=== PATIENT | female | born 1955 | race Caucasian/White ===

== ENCOUNTER 2017-10-16 16:45 | Observation (INO) | payer BC ==
[2017-10-16 17:43] LABS: Absolute Lymphocytes (CBC) 1.2 K/uL (0.7-4.9); Absolute Monocytes 0.8 K/uL (0.1-1.3); Absolute Neutrophil 8.7 K/uL (1.8-8.0); Basophils % 0.8 % (0-1.3); Eosinophils % 1.1 % (0-4.4); Hematocrit 40.3 % (36.0-45.0); Lymphocytes % 11.1 % (15.3-44.8); MCH 29.6 pg (27.0-35.0); MCV 86.4 fL (80-100); Monocytes % 7.5 % (3.3-12.3); RBC Red Blood Cell Count 4.67 M/uL (3.86-4.86)
[2017-10-16 17:45] LABS: Protime INR 0.98
[2017-10-16 17:48] LABS: Urine Blood 1+ (NEG); Urine Glucose NEGATIVE (NEG); Urine Protein NEGATIVE (NEG); Urine Specific Gravity 1.015 (1.005-1.030)
[2017-10-16 17:52] LABS: Urine Bacteria <20 /HPF (<20); Urine Culture Reflex Order REFLEXED; Urine RBC <5 /HPF (NONE SEEN)
[2017-10-16 17:56] LABS: ALT/SGPT 18 U/L (12-78); AST/SGOT 14 U/L (15-37); Albumin 3.9 g/dL (3.4-5.0); Alkaline Phosphatase 68 U/L (45-117); Amylase Level 23 U/L (25-115); BUN Blood Urea Nitrogen 10 mg/dL (7-18); Bicarbonate 27 mmol/L (21-32); Bilirubin Direct 0.2 mg/dL (0-0.2); Bilirubin Total 0.7 mg/dL (0.2-1.0); CKMB Creatine Kinase MB < 1.0 ng/mL (0.3-3.6); Creatine Phosphokinase 63 U/L (26-192); Glucose Level 111 mg/dL (74-106); Lipase 53 U/L (73-393); Magnesium 2.3 mg/dL (1.8-2.4); NT PRO-BNP 517 pg/mL (<125); Potassium 3.5 mmol/L (3.5-5.1); Protein, Total 7.3 g/dL (6.4-8.2); Sodium Level 140 mmol/L (136-145); Troponin (Emerg Dept Use Only) < 0.02 ng/mL (0.0-0.045)
[2017-10-16] MEDS ORDERED: FENTANYL CITR 100 MCG/2 ML ONE (17:57)
[2017-10-16] MEDS ORDERED: NA CHLORIDE 0.9% 1,000 ML ONE (17:57)
[2017-10-16] MEDS ORDERED: CIPROFLOXACIN 400mg IV 400 MG/200 ML BAG IV ONE (17:57)
[2017-10-16] MEDS ORDERED: ONDANSETRON 4 MG/2 ML VIAL ONE (17:57)
[2017-10-16] MEDS ORDERED: METRONIDAZOLE 500mg IVPB 500 MG/100 ML BAG IV ONE (17:57)
--- NOTE | 2017-10-16 20:25 | RAD REPORT ---
EXAM DESCRIPTION: Pablot Single View10/16/2017 5:40 pm CLINICAL HISTORY: ABDOMINAL DISTENTION COMPARISON: CHEST PA AND LAT 2 VIEW dated 03/07/2012; FINDINGS: The lungs appear clear of acute infiltrate. The heart is normal size IMPRESSION: No acute abnormalities displayed
--- NOTE | 2017-10-16 20:25 | RAD REPORT ---
EXAM DESCRIPTION: CT - Abdomen Pelvis W Contrast - 10/16/2017 8:06 pm CLINICAL HISTORY: ABD PAINAbdominal pain/right lower quadrant pain . COMPARISON: None. TECHNIQUE: Computed axial tomography of the abdomen and pelvis was obtained. 100 cc Isovue-300 is ad ministered intravenously. Oral contrast was given. All CT scans are performed using dose optimization technique as appropriate and may include automated exposure control or mA/KV adjustment according to patient size. FINDINGS: Fatty infiltration liver is present. Spleen, pancreas, and adrenals appear unremarkable. Renal cysts are present. The appendix is thickened with stranding and ill-defined fluid adjacent to it. Pneumoperitoneum is no t noted. There is no evidence of diverticulitis A diverticulum stems from the duodenum Gallstones are present without gallbladder wall thickening IMPRESSION: Appendicitis
--- NOTE | 2017-10-16 20:40 | EDPHYS ---
Physician Documentation [facility] Name: Wandy Tucker Age: 61 yrs Sex: Female : 1955 Arrival Date: 10/16/2017 Time: 16:49 Bed 28 Private MD: Shaka Anthony ED Physician Andrea Orr HPI: 10/16 17:40 This 61 yrs old Female presents to ER via Ambulatory with complaints of raysa Abdominal Pain. 17:40 The patient presents with abdominal pain in the upper abdomen, in the lower abdomen, raysa right lower quadrant. Onset: The symptoms/episode began/occurred 2 day(s) ago. The symptoms do not radiate. Associated signs and symptoms: none. The symptoms are described as crampy. Modifying factors: The symptoms are alleviated by nothing, the symptoms are aggravated by nothing. Severity of pain: At its worst the pain was moderate in the emergency department the pain is unchanged. The patient has not experienced similar symptoms in the past. Historical: - Allergies: 16:53 No Known Allergies; hj - Home Meds: 16:53 Paxil Oral [Active]; Wellbutrin Oral [Active]; hj - PMHx: 16:53 Depression; hj - PSHx: 16:53 ; Hysterectomy; hj - Immunization history:: Adult Immunizations up to date. - Social history:: Smoking status: Patient/guardian denies using tobacco, Patient/guardian denies using alcohol. - Ebola Screening: : Patient negative for fever greater than or equal to 101.5 degrees Fahrenheit, and additional compatible Ebola Virus Disease symptoms Patient denies exposure to infectious person Patient denies travel to an Ebola-affected area in the 21 days before illness onset. - Family history:: not pertinent. ROS: 17:43 Constitutional: Negative for fever, chills, and weight loss, Eyes: Negative for injury, raysa pain, redness, and discharge, ENT: Negative for injury, pain, and discharge, Neck: Negative for injury, pain, and swelling, Cardiovascular: Negative for chest pain, palpitations, and edema, Respiratory: Negative for shortness of breath, cough, wheezing, and pleuritic chest pain, Back: Negative for injury and pain, : Negative for injury, bleeding, discharge, and swelling, MS/Extremity: Negative for injury and deformity, Skin: Negative for injury, rash, and discoloration, Neuro: Negative for headache, weakness, numbness, tingling, and seizure, Psych: Negative for depression, anxiety, suicide ideation, homicidal ideation, and hallucinations, Allergy/Immunology: Negative for hives, rash, and allergies, Endocrine: Negative for neck swelling, polydipsia, polyuria, polyphagia, and marked weight changes, Hematologic/Lymphatic: Negative for swollen nodes, abnormal bleeding, and unusual bruising. 17:43 Abdomen/GI: Positive for abdominal pain, nausea, of the right lower quadrant. Exam: 17:40 Constitutional: This is a well developed, well nourished patient who is awake, alert, raysa and in no acute distress. Head/Face: Normocephalic, atraumatic. Eyes: Pupils equal round and reactive to light, extra-ocular motions intact. Lids and lashes normal. Conjunctiva and sclera are non-icteric and not injected. Cornea within normal limits. Periorbital areas with no swelling, redness, or edema. ENT: Nares patent. No nasal discharge, no septal abnormalities noted. Tympanic membranes are normal and external auditory canals are clear. Oropharynx with no redness, swelling, or masses, exudates, or evidence of obstruction, uvula midline. Mucous membranes moist. Neck: Trachea midline, no thyromegaly or masses palpated, and no cervical lymphadenopathy. Supple, full range of motion without nuchal rigidity, or vertebral point tenderness. No Meningismus. Chest/axilla: Normal chest wall appearance and motion. Nontender with no deformity. No lesions are appreciated. Cardiovascular: Regular rate and rhythm with a normal S1 and S2. No gallops, murmurs, or rubs. Normal PMI, no JVD. No pulse deficits. Respiratory: Lungs have equal breath sounds bilaterally, clear to auscultation and percussion. No rales, rhonchi or wheezes noted. No increased work of breathing, no retractions or nasal flaring. Back: No spinal tenderness. No costovertebral tenderness. Full range of motion. Female : Normal external genitalia. Skin: Warm, dry with normal turgor. Normal color with no rashes, no lesions, and no evidence of cellulitis. MS/ Extremity: Pulses equal, no cyanosis. Neurovascular intact. Full, normal range of motion. Neuro: Awake and alert, GCS 15, oriented to person, place, time, and situation. Cranial nerves II-XII grossly intact. Motor strength 5/5 in all extremities. Sensory grossly intact. Cerebellar exam normal. Normal gait. Psych: Awake, alert, with orientation to person, place and time. Behavior, mood, and affect are within normal limits. 17:40 Abdomen/GI: Inspection: abdomen appears normal, Bowel sounds: normal, Palpation: mild abdominal tenderness, in the right lower quadrant and left lower quadrant, Liver: no appreciated palpable abnormalities, Hernia: not appreciated. Vital Signs: 16:54 BP 141 / 80; Pulse 76; Resp 18; Temp 97.0(TE); Pulse Ox 100% on R/A; Weight 111.13 kg; hj Height 5 ft. 6 in. (167.64 cm); Pain 8/10; 18:45 BP 120 / 57 RA Sitting (auto/lg); Pulse 74; Resp 19; Pulse Ox 95% on R/A; Pain 2/10; jp3 19:39 BP 114 / 78; Pulse 76; Resp 16; Pulse Ox 98% on R/A; tl3 21:01 BP 136 / 79; Pulse 87; Resp 18; Pulse Ox 100% on R/A; tl3 22:19 BP 122 / 74; Pulse 81; Resp 18; Pulse Ox 100% on R/A; tl3 16:54 Body Mass Index 39.54 (111.13 kg, 167.64 cm) MDM: 17:01 Patient medically screened. [facility] 17:45 Data reviewed: vital signs, nurses notes, lab test result(s), EKG, radiologic studies, [facility] CT scan, plain films. 20:10 Data interpreted: Pulse oximetry: on room air is 98 %. Interpretation: normal. [facility] 20:38 Counseling: I had a detailed discussion with the patient and/or guardian regarding: the [facility] historical points, exam findings, and any diagnostic results supporting the discharge/admit diagnosis, lab results, radiology results, the need for further work-up and treatment in the hospital. Physician consultation: Jeremy Zavala MD was called at 20:38, was contacted at 20:38, regarding admission, to the medical/surgical unit. consult, patient's condition, and will see patient. 10/16 17:08 Order name: Amylase, Serum; Complete Time: 18:21 [facility] 10/16 17:08 Order name: Basic Metabolic Panel; Complete Time: 18:21 [facility] 10/16 17:08 Order name: CBC with Diff; Complete Time: 18:21 [facility] 10/16 17:08 Order name: Creatinine for Radiology; Complete Time: 18:21 [facility] 10/16 17:08 Order name: Hepatic Function; Complete Time: 18:21 [facility] 10/16 17:08 Order name: Lipase; Complete Time: 18:21 [facility] 10/16 17:08 Order name: Urine Microscopic Only; Complete Time: 18:21 [facility] 10/16 17:08 Order name: Ckmb; Complete Time: 18:21 [facility] 10/16 17:08 Order name: CPK; Complete Time: 18:21 [facility] 10/16 17:08 Order name: Magnesium; Complete Time: 18:21 [facility] 10/16 17:08 Order name: NT PRO-BNP; Complete Time: 18:21 [facility] 10/16 17:08 Order name: PT-INR; Complete Time: 18:21 [facility] 10/16 17:08 Order name: Ptt, Activated; Complete Time: 18:21 [facility] 10/16 17:08 Order name: Troponin (emerg Dept Use Only); Complete Time: 18:21 [facility] 10/16 17:15 Order name: Urine Dipstick--Ancillary (enter results); Complete Time: 18:21 em1 10/16 17:54 Order name: Urine Culture EDWI 10/16 17:08 Order name: XRAY Chest (1 view); Complete Time: 20:26 [facility] 10/16 17:39 Order name: CT Abd/Pelvis - W/Contrast; Complete Time: 20:26 [facility] 10/16 17:08 Order name: EKG; Complete Time: 17:09 [facility] 10/16 17:08 Order name: IV Saline Lock; Complete Time: 17:28 [facility] 10/16 17:08 Order name: Labs collected and sent; Complete Time: 17:28 [facility] 10/16 17:08 Order name: Urine Dipstick-Ancillary (obtain specimen); Complete Time: 17:13 [facility] 10/16 17:08 Order name: Cardiac monitoring; Complete Time: 17:27 [facility] 10/16 17:08 Order name: EKG - Nurse/Tech; Complete Time: 17:27 [facility] 10/16 17:08 Order name: O2 Per Protocol; Complete Time: 17:27 [facility] 10/16 17:08 Order name: O2 Sat Monitoring; Complete Time: 17:27 [facility] 10/16 20:28 Order name: NPO; Complete Time: 21:23 jr8 Administered Medications: 18:08 Drug: NS 0.9% 1000 ml Route: IV; Rate: 1 bolus; Site: left antecubital; aj1 21:00 Follow up: IV Status: Completed infusion; IV Intake: 1000ml tl3 18:08 Drug: Cipro 400 mg Volume: 200 ml; Route: IVPB; Infused Over: 60 mins; Site: left aj1 antecubital; 21:00 Follow up: IV Status: Completed infusion; IV Intake: 200ml tl3 18:09 Drug: Flagyl 500 mg Volume: 100 ml; Route: IVPB; Rate: 200 ml/hr; Infused Over: 30 aj1 mins; Site: left antecubital; 22:29 Follow up: IV Status: Completed infusion; Infusion continued upon admission; IV Intake: tl3 100ml 18:09 Drug: fentaNYL (PF) 25 mcg Route: IVP; Site: left antecubital; aj1 20:59 Follow up: Response: Pain is decreased tl3 18:09 Drug: Zofran 4 mg Route: IVP; Site: left antecubital; aj1 20:59 Follow up: Response: No adverse reaction tl3 Disposition: 10/17 08:23 Co-signature as Attending Physician, Andrea Orr MD I agree with the assessment and [facility] plan of care. Disposition: 10/16/17 20:39 Hospitalization ordered by Jeremy Zavala for Observation. Preliminary diagnosis is Acute appendicitis. - Bed requested for Telemetry/MedSurg (observation). - Status is Observation. tl3 - Condition is Stable. - Problem is new. - Symptoms have improved. UTI on Admission? No Signatures: Dispatcher [employer] Sarah Valentino RN RN aj1 Kristen Mckeon RN RN mw Anderson, Corey, MD MD cha Roszak, Josh, PA PA jr8 Andrew Davila RN RN hj Lowrey, Tammy, RN RN tl3 Corrections: (The following items were deleted from the chart) 10/16 20:42 20:39 Hospitalization Ordered by Jeremy Zavala MD for Observation. Preliminary diagnosis mw is Acute appendicitis. Bed requested for Telemetry/MedSurg (observation). Status is Observation. Condition is Stable. Problem is new. Symptoms have improved. UTI on Admission? No. jr8 22:30 20:42 10/16/2017 20:39 Hospitalization Ordered by Jeremy Zavala MD for Observation. tl3 Preliminary diagnosis is Acute appendicitis. Bed requested for Telemetry/MedSurg (observation). Status is Observation. Condition is Stable. Problem is new. Symptoms have improved. UTI on Admission? No. mw
--- NOTE | 2017-10-16 20:40 | ER ---
Nurse's Notes [facility] Name: Wandy Tucker Age: 61 yrs Sex: Female : 1955 Arrival Date: 10/16/2017 Time: 16:49 Bed 28 Private MD: Shaka Anthony Diagnosis: Acute appendicitis Presentation: 10/16 16:50 Presenting complaint: Patient states: i woke up this morning around 2 am with abd pain, hj R lower side; pain is 8/10; reports nausea, denies vomiting; reports diarrhea yesterday; reports chills; ibuprofen taken at 12 noon and Aleve at 2pm today;. Transition of care: patient was not received from another setting of care. Onset of symptoms was October 16, 2017. Risk Assessment: Do you want to hurt yourself or someone else? Patient reports no desire to harm self or others. Initial Sepsis Screen: Does the patient meet any 2 criteria? No. Patient's initial sepsis screen is negative. Does the patient have a suspected source of infection? No. Patient's initial sepsis screen is negative. Care prior to arrival: None. 16:50 Method Of Arrival: Ambulatory 16:50 Acuity: JAVED 3 hj Triage Assessment: 16:53 General: Appears in no apparent distress. uncomfortable, Behavior is calm, cooperative, hj appropriate for age. Pain: Complains of pain in abdomen Pain currently is 8 out of 10 on a pain scale. GI: Reports lower abdominal pain, diarrhea, nausea, vomiting. Historical: - Allergies: 16:53 No Known Allergies; hj - Home Meds: 16:53 Paxil Oral [Active]; Wellbutrin Oral [Active]; hj - PMHx: 16:53 Depression; hj - PSHx: 16:53 ; Hysterectomy; hj - Immunization history:: Adult Immunizations up to date. - Social history:: Smoking status: Patient/guardian denies using tobacco, Patient/guardian denies using alcohol. - Ebola Screening: : Patient negative for fever greater than or equal to 101.5 degrees Fahrenheit, and additional compatible Ebola Virus Disease symptoms Patient denies exposure to infectious person Patient denies travel to an Ebola-affected area in the 21 days before illness onset. - Family history:: not pertinent. Screenin:53 Abuse screen: Denies threats or abuse. Denies injuries from another. Nutritional hj screening: No deficits noted. Tuberculosis screening: No symptoms or risk factors identified. Fall Risk None identified. Assessment: 16:53 GI: Bowel sounds present X 4 quads. Abd is soft Abdomen is tender to palpation. hj 17:04 General: Appears in no apparent distress. uncomfortable, Behavior is calm, cooperative, aj1 appropriate for age. Pain: Complains of pain in right lower quadrant Pain radiates to back Pain currently is 8 out of 10 on a pain scale. Quality of pain is described as sharp, Pain began 1 day ago. Is continuous, Alleviated by medications, Aggravated by nothing. Neuro: Level of Consciousness is awake, alert, obeys commands. Cardiovascular: Patient's skin is warm and dry. Respiratory: Airway is patent Respiratory effort is even, unlabored, Respiratory pattern is regular, symmetrical. GI: Abdomen is non-distended, Bowel sounds present X 4 quads. Abd is soft X 4 quads Abdomen is tender to palpation X 4 quads. GI: Reports lower abdominal pain, diarrhea, nausea, Patient currently denies vomiting. : No signs and/or symptoms were reported regarding the genitourinary system. EENT: Derm: No signs and/or symptoms reported regarding the dermatologic system. Skin is pink, warm \T\ dry. normal. Musculoskeletal: Range of motion: intact in all extremities. 18:15 Reassessment: Patient appears in no apparent distress at this time. No changes from aj1 previously documented assessment. Patient and/or family updated on plan of care and expected duration. Pain level reassessed. Patient is alert, oriented x 3, equal unlabored respirations, skin warm/dry/pink. 19:39 Reassessment: Patient and/or family updated on plan of care and expected duration. Pain tl3 level reassessed. Patient is alert, oriented x 3, equal unlabored respirations, skin warm/dry/pink. no needs at this time. 21:01 Reassessment: Patient appears in no apparent distress at this time. No changes from tl3 previously documented assessment. Patient and/or family updated on plan of care and expected duration. Pain level reassessed. Patient is alert, oriented x 3, equal unlabored respirations, skin warm/dry/pink. Kevin discussed CT results with pt and the need for admission. 22:19 Reassessment: Patient appears in no apparent distress at this time. No changes from tl3 previously documented assessment. Patient and/or family updated on plan of care and expected duration. Pain level reassessed. Patient is alert, oriented x 3, equal unlabored respirations, skin warm/dry/pink. Vital Signs: 16:54 BP 141 / 80; Pulse 76; Resp 18; Temp 97.0(TE); Pulse Ox 100% on R/A; Weight 111.13 kg; hj Height 5 ft. 6 in. (167.64 cm); Pain 8/10; 18:45 BP 120 / 57 RA Sitting (auto/lg); Pulse 74; Resp 19; Pulse Ox 95% on R/A; Pain 2/10; jp3 19:39 BP 114 / 78; Pulse 76; Resp 16; Pulse Ox 98% on R/A; tl3 21:01 BP 136 / 79; Pulse 87; Resp 18; Pulse Ox 100% on R/A; tl3 22:19 BP 122 / 74; Pulse 81; Resp 18; Pulse Ox 100% on R/A; tl3 16:54 Body Mass Index 39.54 (111.13 kg, 167.64 cm) hj ED Course: 16:49 Patient arrived in ED. sb2 16:49 Shaka Anthony MD is Private Physician. sb2 16:52 Triage completed. hj 16:53 Arm band placed on right wrist. hj 16:54 Patient has correct armband on for positive identification. Placed in gown. Bed in low hj position. Call light in reach. Side rails up X 1. 17:00 Urine collected: clean catch specimen, clear, sanjay colored, Amount Voided: 30mL. jp3 17:01 Sarah Mejia, RN is Primary Nurse. aj1 17:01 Andrea Orr MD is Attending Physician. raysa 17:04 No provider procedures requiring assistance completed. aj1 17:30 EKG done, by ED staff, reviewed by Andrea Orr MD. jp3 17:33 Urine Dipstick--Ancillary (enter results) Sent. jp3 17:36 X-ray completed. Portable x-ray completed in exam room. Patient tolerated procedure bb2 well. 17:40 XRAY Chest (1 view) In Process Unspecified. EDMS 17:45 Oral contrast given. sj 18:24 Urine Culture Sent. aj1 18:49 Lights dimmed. Warm blanket given. Pillow given. jp3 19:02 [facility] Grey [facility]. jr8 19:[address] tl3 20:05 CT completed. Patient tolerated procedure well. Patient moved back from CT. vm2 20:07 CT Abd/Pelvis - W/Contrast In Process Unspecified. EDMS 20:39 Jeremy Zavala MD is Hospitalizing Provider. jr8 21:21 Surgical consent explained by physician. tl3 21:21 Patient admitted, IV remains in place. tl3 Administered Medications: 18:08 Drug: NS 0.9% 1000 ml Route: IV; Rate: 1 bolus; Site: left antecubital; aj1 21:00 Follow up: IV Status: Completed infusion; IV Intake: 1000ml tl3 18:08 Drug: Cipro 400 mg Volume: 200 ml; Route: IVPB; Infused Over: 60 mins; Site: left aj1 antecubital; 21:00 Follow up: IV Status: Completed infusion; IV Intake: 200ml tl3 18:09 Drug: Flagyl 500 mg Volume: 100 ml; Route: IVPB; Rate: 200 ml/hr; Infused Over: 30 aj1 mins; Site: left antecubital; 22:29 Follow up: IV Status: Completed infusion; Infusion continued upon admission; IV Intake: tl3 100ml 18:09 Drug: fentaNYL (PF) 25 mcg Route: IVP; Site: left antecubital; aj1 20:59 Follow up: Response: Pain is decreased tl3 18:09 Drug: Zofran 4 mg Route: IVP; Site: left antecubital; aj1 20:59 Follow up: Response: No adverse reaction tl3 Intake: 21:00 IV: 200ml; Total: 200ml. tl3 21:00 IV: 1000ml; Total: 1200ml. tl3 22:29 IV: 100ml; Total: 1300ml. tl3 Outcome: 20:39 Decision to Hospitalize by Provider. jr8 22:18 Admitted to Med/surg accompanied by tech, via wheelchair, room 212, with chart, Report tl3 called to DIPTI Love 22:18 Condition: stable 22:18 Instructed on the need for admit. 22:30 Patient left the ED. tl3 Signatures: Dispatcher [employer] Sarah Valentino RN RN aj1 Andrea Orr MD MD cha Jones, Kevin Gold PA PA jr8 Andrew Davila, RN RN Hali Isaac 2 Yanelis Phelps 2 Josiane Whitlock 2 Claudette Hewitt, DIPTI RN tl3 Douglas Correia jp3 Corrections: (The following items were deleted from the chart) 16:56 16:54 Pulse 76bpm; Resp 18bpm; Pulse Ox 100% RA; Temp 97.0F Temporal; 111.13 kg; Height hj 5 ft. 6 in.; BMI: 39.5; Pain 8/10; hj 22:29 20:59 IV Status: Completed infusion; IV Intake: 100ml tl3 tl3
[2017-10-16] MEDS ORDERED: ACETAMINOPHEN 500 MG TAB PO PRN (22:42)
[2017-10-16] MEDS ORDERED: ONDANSETRON 4 MG/2 ML VIAL IV PRN (22:42)
[2017-10-16] MEDS ORDERED: MORPHINE 4 MG/ML SYR IV PRN (22:42)
[2017-10-16] MEDS: NA CHLORIDE 0.9% 1,000 ML IV SCH (22:55)
[2017-10-17] MEDS ORDERED: PIPER/TAZO/NS 3.375gm 3.375 GM/100 ML BAG ONE (00:37)
[2017-10-17] MEDS: PIPER/TAZO/NS 3.375gm 3.375 GM/100 ML BAG IVPB SCH ×3 (00:45→08:30)
--- NOTE | 2017-10-17 01:58 | HP ---
Date of Admission: 10/16/2017 Brief Hpi: The patient is a 61-year-old female, who presents with a 1-day history of periumbilical, now right lower quadrant abdominal pain that began earlier today. She states that the pain is locali zed to this area. Had some low-grade nausea. No vomiting. Low-grade fever. No chills. She has no t had similar episodes before in the past. No sick contacts. No recent travel. No new food exposur es. No other change in bowel or bladder habits. Past Medical History: Significant for depression. Past Surgical History: Three C sections and a partial hysterectomy. Allergies: NO KNOWN DRUG ALLERGIES. Medications: She takes Wellbutrin. Social History: She denies smoking, alcohol, or recreational drug use. She works as a substitute te acher. Family History: Reviewed, noncontributory. Review of Systems: A 10-point review of systems other than HPI, denies. Physical Examination: At the time of my examination; General: She is awake, alert, oriented. Psychiatric: She is appropriate and conversive. HEENT: She is normocephalic. Sclerae icteric. Mucous membranes are moist. Oropharynx clear. Neck: Supple. No JVD. Chest: Normal expansion and excursion. Cardiovascular: Regular rate and rhythm. Pulmonary: Clear to auscultation bilaterally. Abdomen: Soft with positive right lower quadrant tenderness to palpation. Positive focal peritoniti s. It is mild at the current time and has been improved since her admission to the hospital by her r eport, but she does have focal peritonitis in this area. Laboratory Data: Reveals a white blood cell count of 10.9, hemoglobin 13.8, hematocrit of 40.3, plat elet count 199, neutrophils are 79%. PT 11.6, INR 0.9, APTT 35.0. Sodium 140, potassium 3.5, chlori de 106, carbon dioxide 27, BUN 10, creatinine 1.1, glucose is 111, total bilirubin 0.7, her lipase is 53. UA showed 1+ blood, trace leukocyte esterase. CT scan for the abdomen and pelvis is consistent with an acute appendicitis. Appendix taken with stranding and ill-defined fluid adjacent to the pne umoperitoneum is not noted. No diverticulitis, diverticulum stems from the duodenum. However, galls tones are present without gallbladder wall thickening. Assessment And Plan: This is a 61-year-old female, who presents with signs and symptoms of acute elis endicitis. 1.IV fluid hydration. 2.Antibiotic coverage. 3.I have explained the risks, benefits, alternatives of a laparoscopic possible open appendectomy in the morning. She agrees to proceed as indicated. I have explained the risks, benefits, and alterna tives including but not limited to bleeding, infection, damage to the surrounding tissue, need furthe r operation or procedures. She agrees to proceed as indicated. STEVE/CASI Voice ID: [id number]
[2017-10-17] MEDS: NA CHLORIDE 0.9% 1,000 ML IV SCH (04:01)
[2017-10-17 05:08] LABS: Absolute Lymphocytes (CBC) 1.8 K/uL (0.7-4.9); Absolute Monocytes 0.8 K/uL (0.1-1.3); Absolute Neutrophil 8.4 K/uL (1.8-8.0); Basophils % 0.4 % (0-1.3); Eosinophils % 0.6 % (0-4.4); Hematocrit 34.1 % (36.0-45.0); Lymphocytes % 16.4 % (15.3-44.8); MCH 29.8 pg (27.0-35.0); MPV 9.2 fL (7.6-11.3); Monocytes % 7.3 % (3.3-12.3); RBC Red Blood Cell Count 3.87 M/uL (3.86-4.86)
[2017-10-17 05:26] LABS: Potassium 4.3 mmol/L (3.5-5.1)
[2017-10-17] MEDS ORDERED: PNEUMOCOCCAL VACCINE 0.5 ML IMVAC ONE (06:00)
[2017-10-17] MEDS ORDERED: ROCURONIUM 50 MG/5 ML VIAL IV ONE (07:27)
[2017-10-17] MEDS ORDERED: ONDANSETRON HCL 40 MG/20 ML VIAL ONE (07:27)
[2017-10-17] MEDS ORDERED: FENTANYL CITR 100 MCG/2 ML ONE (07:27)
[2017-10-17] MEDS ORDERED: PROPOFOL 200 MG/20 ML VIAL IV ONE (07:27)
[2017-10-17] MEDS ORDERED: MIDAZOLAM HCL 2 MG/2 ML INJ ONE (07:27)
[2017-10-17] MEDS ORDERED: Ringers Lactate 1,000 ML IV ONE (07:46)
[2017-10-17] MEDS: BUPIVACA 0.25%/EPI 0.0005% MDV 50 ML VIAL ONE ×2 (08:06→08:13)
[2017-10-17] MEDS ORDERED: GLYCOPYRROLATE 0.2 MG/ML SYR ONE (08:13)
--- NOTE | 2017-10-17 08:30 | P.OP ---
Preoperative diagnosis: Acute Appendicitis Postoperative diagnosis: Acute Appendicitis Primary procedure: Laparoscopic appendectomy Anesthesia: GETA + Local Estimated blood loss: <5cc Specimen: Vermiform Appendix Findings: significant intra-abdominal adhesions, non-perforated appendix Complications: None Transferred to: Recovery Room Condition: Good
[2017-10-17] MEDS ORDERED: KETOROLAC 30 MG/ML INJ ONE (08:32)
[2017-10-17] MEDS ORDERED: ONDANSETRON 4 MG/2 ML VIAL ONE (09:20)
--- NOTE | 2017-10-17 12:22 | EKG ---
Test Date: 2017-10-16 Test Time: 17:30:27 Hot Pipe Gauger: BARBARA MEASUREMENT RESULTS: Intervals: Rate: 74 KS: 188 QRSD: 80 QT: 378 QTc: 419 [place]: P: 28 KS: 188 QRS: 5 T: 20 INTERPRETIVE STATEMENTS: Normal sinus rhythm Normal ECG Compared to ECG 12/23/2010 12:54:57 No significant changes Electronically Signed On 10-17-17 12:19:16 CDT by Lito Hernández
--- NOTE | 2017-10-17 19:01 | OP ---
Date of Procedure: 10/17/2017 Surgeon: Jeremy Zavala MD, Preoperative Diagnosis: Acute appendicitis. Postoperative Diagnosis: Acute appendicitis. Procedure Performed: Laparoscopic appendectomy. Anesthesia: General endotracheal plus local, 0.25% Marcaine with epinephrine. Estimated Blood Loss: 5 cc. Specimen: Vermiform appendix. Findings: 1.Significant intraabdominal adhesions. 2.Nonperforated appendicitis. Complications: None. Disposition: Transferred to recovery room in good condition. Procedure In Detail: After informed consent was obtained, the patient was brought to the operating r oom, prepped and draped in the usual sterile fashion. After adequate anesthesia was achieved, an inf raumbilical area was anesthetized with 0.25% Marcaine, sharply incised. A 5-mm trocar was introduced in the abdomen without evidence of complication. Insufflation was obtained to 15 mmHg at this time. The area was inspected for injury of vital structures. No injury or bowel obstruction in the abdom en at this time. However, there were multiple intraabdominal adhesions from the omentum to the anter ior abdominal wall and from previous C-sections, there were significant intraabdominal adhesions in t he pelvis as well as in the right lower quadrant. Additional trocar site was chosen in the suprapubi c position and similarly anesthetized, sharply incised, and a 5-mm trocar was introduced in the abdom en without evidence of complication. The umbilical trocar was then up-sized to a 12 mm under direct visualization without evidence of complication. Additional trocar site was chosen in the left lower quadrant, this was similarly anesthetized, sharply incised. A 5-mm trocar was introduced in the abdo men without evidence of complication. The patient was positioned head down, right side up position. Graspers used to grasp the patient's appendix found in the right lower quadrant. There was a non-pe rforated acute appendicitis evident in this area with minimal fluid in the area and minimal suppurati ve changes. The mesoappendiceal window was created with the [place] retractor and the Endo ESTRELLA 35 b lue load fired across the base of the appendix with good approximation of tissues at the confluence o f the cecum. The LigaSure device was then used to take the mesoappendix down with good hemostasis at this time. The appendix was then placed in EndoCatch bag and removed through the umbilical trocar. Re-insufflation was obtained at this time. The area was copiously irrigated multiple times until co mpletely clear, and the area was inspected. Staple line was found to be good anatomic position. The re was no bleeding at the end the procedure. The patient was positioned in neutral position and the umbilical trocar was then removed, and the umbilical trocar site closed with a Tone-Jeni suture passer using 0 Vicryl in interrupted fashion with good approximation of tissue. The abdomen was com pletely desufflated under direct visualization without evidence of complication. All trocar were the n removed. All skin incisions were copiously irrigated and closed with a 4-0 Monocryl in a running f ashion Dermabond placed over top. The patient tolerated the procedure well without evidence of compl ication, and transferred to the PACU in good condition. All counts were correct at the end of the ca se. STEVE/CASI Voice ID: [id number] Report ID: [id number]
== END 2017-10-17 16:39 | disposition home or self-care (01) ==
LOC: ER 16:45 → ERHOLD 20:41 → 2ND 22:16
PROVIDERS: ADMIT Surgery; ATTEND Surgery
PROC: 0DTJ4ZZ Resection of Appendix, Percutaneous Endoscopic Approach (ICD-10-PCS; principal; 2017-10-17 07:30)
DX: K35.80 Unspecified acute appendicitis (principal); F32.9 Major depressive disorder, single episode, unspecified; Z23 Encounter for immunization
CPT/HCPCS: 36415; 71045; 74177; 80048; 80076; 81003; 81015; 82150; 82550; 82553; 83690; 83735; 83880; 84484; 85025; 85610; 85730; 87086; 87088; 88304; 90670; 93005; 96365; 96366; 96375; 99285; G0009; G0378; J0744; J2250; J2405; J2543; J3010; J7030; Q9967

== ENCOUNTER → 2017-12-01 | Day surgery (SDC) | payer BC ==
[~2017-12-01] MED LIST: PROPOFOL 200 MG/20 ML VIAL IV ONE; Ringers Lactate 1,000 ML IV ONE
--- NOTE | 2017-12-01 10:11 | ENDO RPT ---
[address], [address] COLONOSCOPY PROCEDURE REPORT EXAM DATE: 12/01/2017 PATIENT NAME: Wandy Tucker MR #: [id number] BIRTHDATE: 1955 ATTENDING: Jeremy Zavlaa DR STATUS: outpatient MEDICARE COMPLIANCE AUDITOR: Hernan Rockwell and Betsy Lindsay RN INDICATIONS: The patient is a 61 yr old Female here for a colonoscopy due to colon cancer screening PROCEDURE PERFORMED: Colonoscopy with biopsy - cold polypectomy MEDICATIONS: Per Anesthesia. ESTIMATED BLOOD LOSS: None CONSENT: The patient understands the risks and benefits of the procedure and understands that these risks include, but are not limited to: sedation, allergic reaction, infection, perforation and/or bleeding. Alternative means of evaluation and treatment include, among others: physical exam, x-rays, and/or surgical intervention. The patient elects to proceed with this endoscopic procedure. DESCRIPTION OF PROCEDURE: During intra-op preparation period all mechanical medical equipment was checked for proper function. Hand hygiene and appropriate measures for infection prevention was taken. Procedure, possible complications, alternatives including, but not limited to possibility of bleeding, perforation, tear, infection, sepsis, need for surgery, need for blood transfusion, were explained to the patient. After the risks, benefits and alternatives of the procedure were thoroughly explained, Informed consent was verified, confirmed and timeout was successfully executed by the treatment team. The patient was placed in the left lateral position. A digital rectal exam was performed and revealed internal hemorrhoids. After appropriate level of anesthesia, the scope was passed. The EC-3890Li ([id number]) endoscope was introduced through the anus and advanced to the cecum, which was identified by the ileocecal valve. The quality of the prep was good. The instrument was then slowly withdrawn as the colon was fully examined. Scope withdrawal time was 10 minutes. COLON FINDINGS: Two medium sized smooth and polypoid shaped pedunculated polyps with friable surfaces were found in the rectosigmoid colon. One was at 25 cm, another at 23 cm from the verge. A polypectomy was performed using snare cautery on both specimen, the distal specimen had an additional margin taken. The distal lesion was tattood as well. The resection was complete, the polyp tissue was completely retrieved and sent to histology. Retroflexed views revealed small hemorrhoids. The scope was then completely withdrawn from the patient and the procedure terminated. ADVERSE EVENTS: There were no complications. IMPRESSIONS: Two medium sized pedunculated polyps were found in the rectosigmoid colon; polypectomy was performed using snare cautery RECOMMENDATIONS: 1. avoid NSAIDS for 2 weeks 2. await biopsy results 3. fiber rich diet 4. follow-up: office 2 week(s) 5. hemorrhoidal hygiene RECALL: Return in 1 year(s) for Colonoscopy, pending biopsy results. Pending Biopsy Jeremy Zavala DR eSigned: Jeremy Zavala DR 12/01/2017 10:10 AM cc: CPT CODES: ICD9 CODES: PATIENT NAME: Wandy Tucker MR#: [id number]
== END | disposition home or self-care (01) ==
LOC: OR 07:45
PROVIDERS: ATTEND Surgery
PROC: 0DBN8ZX Excision of Sigmoid Colon, Via Natural or Artificial Opening Endoscopic, Diagnostic (ICD-10-PCS; principal; 2017-12-01 09:15)
DX: Z12.11 Encounter for screening for malignant neoplasm of colon (principal); D12.7 Benign neoplasm of rectosigmoid junction; K64.8 Other hemorrhoids; K21.9 Gastro-esophageal reflux disease without esophagitis; F32.9 Major depressive disorder, single episode, unspecified; E66.9 Obesity, unspecified; Z68.38 Body mass index [BMI] 38.0-38.9, adult
CPT/HCPCS: 88305; J2704

== ENCOUNTER 2018-05-18 07:01 | Day surgery (SDC) | payer OTHER ==
[2018-05-18] MEDS ORDERED: Ringers Lactate 1,000 ML IV ONE (07:50)
[2018-05-18] MEDS ORDERED: LIDOCAINE 1% MPF 5 ML VIAL ONE (08:38)
[2018-05-18] MEDS ORDERED: PROPOFOL 200 MG/20 ML VIAL IV ONE (08:38)
--- NOTE | 2018-05-18 09:01 | ENDO RPT ---
[address], [address] COLONOSCOPY PROCEDURE REPORT EXAM DATE: 05/18/2018 PATIENT NAME: Wandy Tucker MR #: [id number] BIRTHDATE: 1955 ATTENDING: Jeremy Zavala DR STATUS: outpatient PHARMACOGENETICIST: Macrina Rockwell and Alpa Rockwell INDICATIONS: The patient is a 62 yr old Female here for a colonoscopy due to history of polyps PROCEDURE PERFORMED: Colonoscopy and Screening Colonoscopy MEDICATIONS: Per Anesthesia. ESTIMATED BLOOD LOSS: None CONSENT: The patient understands the risks and benefits of the procedure and understands that these risks include, but are not limited to: sedation, allergic reaction, infection, perforation and/or bleeding. Alternative means of evaluation and treatment include, among others: physical exam, x-rays, and/or surgical intervention. The patient elects to proceed with this endoscopic procedure. DESCRIPTION OF PROCEDURE: During intra-op preparation period all mechanical medical equipment was checked for proper function. Hand hygiene and appropriate measures for infection prevention was taken. Procedure, possible complications, alternatives including, but not limited to possibility of bleeding, perforation, tear, infection, sepsis, need for surgery, need for blood transfusion, were explained to the patient. After the risks, benefits and alternatives of the procedure were thoroughly explained, Informed consent was verified, confirmed and timeout was successfully executed by the treatment team. The patient was placed in the left lateral position. A digital rectal exam was performed and revealed internal hemorrhoids. After appropriate level of anesthesia, the scope was passed. The EC-3890Li ([id number]) endoscope was introduced through the anus and advanced to the cecum, which was identified by the ileocecal valve. The quality of the prep was good. The instrument was then slowly withdrawn as the colon was fully examined. Scope withdrawal time was 10 minutes. COLON FINDINGS: The colon mucosa was otherwise normal. Retroflexed views revealed no abnormalities. The scope was then completely withdrawn from the patient and the procedure terminated. ADVERSE EVENTS: There were no complications. IMPRESSIONS: The colon mucosa was otherwise normal RECOMMENDATIONS: 1. follow-up: office 5 year(s) 2. hemorrhoidal hygiene 3. fiber rich diet 4. yearly hemoccult starting in 4 years 5. Stool DNA FIT Testing in 4 years RECALL: Return in 5 year(s) for Colonoscopy. Jeremy Zavala DR eSigned: Jeremy Zavala DR 05/18/2018 9:00 AM cc: CPT CODES: ICD9 CODES: PATIENT NAME: Wandy Tucker MR#: [id number]
== END 2018-05-18 09:50 | disposition home or self-care (01) ==
LOC: OR 07:01
PROVIDERS: ATTEND Surgery
PROC: 0DJD8ZZ Inspection of Lower Intestinal Tract, Via Natural or Artificial Opening Endoscopic (ICD-10-PCS; principal; 2018-05-18 08:30)
DX: Z12.11 Encounter for screening for malignant neoplasm of colon (principal); Z86.010 Personal history of colon polyps; K64.8 Other hemorrhoids; F33.40 Major depressive disorder, recurrent, in remission, unspecified; Z79.899 Other long term (current) drug therapy
CPT/HCPCS: J2704

== ENCOUNTER 2019-02-05 10:44 | Emergency (ER) | payer OTHER ==
[2019-02-05] MEDS ORDERED: NA CHLORIDE 0.9% 1,000 ML ONE (11:05)
[2019-02-05] MEDS ORDERED: DIPHENHYDRAMINE 50 MG/ML VIAL ONE (12:05)
[2019-02-05] MEDS ORDERED: METOCLOPRAMIDE 10 MG/2mL INJ ONE (12:05)
[2019-02-05] MEDS ORDERED: KETOROLAC 30 MG/ML INJ ONE (12:05)
[2019-02-05 13:09] LABS: ALT/SGPT 20 U/L (12-78); AST/SGOT 18 U/L (15-37); Alkaline Phosphatase 50 U/L (45-117); BUN Blood Urea Nitrogen 23 mg/dL (7-18); Bicarbonate 27 mmol/L (21-32); Bilirubin Total 0.7 mg/dL (0.2-1.0); Glucose Level 122 mg/dL (74-106); Protein, Total 7.1 g/dL (6.4-8.2); Sodium Level 142 mmol/L (136-145); Troponin (Emerg Dept Use Only) < 0.02 ng/mL (0.0-0.045)
[2019-02-05 13:17] LABS: Protime INR 0.96
[2019-02-05 13:18] LABS: Absolute Lymphocytes (CBC) 1.7 K/uL (0.7-4.9); Basophils % 1.3 % (0-1.3); Hematocrit 39.2 % (36.0-45.0); Lymphocytes % 27.6 % (15.3-44.8); MPV 8.8 fL (7.6-11.3); RBC Red Blood Cell Count 4.58 M/uL (3.86-4.86)
--- NOTE | 2019-02-05 14:15 | RAD REPORT ---
EXAM DESCRIPTION: MRI - Brain Wo Cont - 02/05/2019 1:50 pm CLINICAL HISTORY: R/O CVA Headache, drowsiness, CVA symptomology COMPARISON: Ct Stroke Brain Wo Cont dated 02/05/2019 TECHNIQUE: Multi-sequence, multiplanar MR imaging of the brain was performed without contrast. FINDINGS: No intracranial hemorrhage, hydrocephalus or extra-axial fluid collections.Mild generalize d brain atrophy is present with mild periventricular and deep white matter chronic microvascular isch emic changes. No edema or shift of midline structures. No findings to suspect brain mass. DWI is nega tive for acute CVA. Midline structures are normally formed. Mastoid air cells and paranasal sinuses are clear. IMPRESSION: Negative for acute CVA or other acute intracranial abnormality.
--- NOTE | 2019-02-05 14:53 | RAD REPORT ---
EXAM DESCRIPTION: RAD - Chest Single View - 02/05/2019 2:15 pm CLINICAL HISTORY: CODE STROKE Chest pain. COMPARISON: No comparisons FINDINGS: Portable technique limits examination quality. The lungs are grossly clear. The heart is normal in size. No displaced fractures. IMPRESSION: No acute intrathoracic process suspected.
--- NOTE | 2019-02-05 23:28 | RAD REPORT ---
EXAM DESCRIPTION: CT - Ct Stroke Brain Wo Cont - 02/05/2019 1:08 pm CLINICAL HISTORY: Left arm weakness, CVA CLINICAL HISTORY: CT head December 2010 TECHNIQUE: Axial 5 millimeter thick images of the head were obtained without IV contrast. All CT scans are performed using dose optimization technique as appropriate and may include automated exposure control or mA/KV adjustment according to patient size. FINDINGS: No intracranial hemorrhage, mass, or cerebral edema. No acute cortical based infarction. N o cortical edema or sulcal effacement. Atrophy changes are mild. Chronic ischemic changes are seen in the cerebral white matter also appearing mild. Ventricles are in proportion to any volume loss. No e xtra-axial fluid collections. Felder matter-white matter differentiation is preserved. Visualized portions of the mastoid air cells, paranasal sinuses, and orbits are unremarkable. Due to technical malfunction is occurring at the time of the study, due report could not be generated and prior images were not available. Findings were telephoned to the referring physician 10:59 a.m. IMPRESSION: No CT evidence of acute intracranial process. Mild atrophy and chronic ischemic changes. Chronic ischemic changes can mask nonhemorrhagic acute infarction. MR brain followup can be obtained if there is ongoing concern for acute ischemia.
--- NOTE | 2019-02-05 23:33 | EDPHYS ---
Physician Documentation [facility] Name: Wandy Tucker Age: 63 yrs Sex: Female : 1955 Arrival Date: 02/05/2019 Time: 10:46 Bed 7 Private MD: Shaka Anthony ED Physician Felix Cox HPI: 02/05 12:25 This 63 yrs old Female presents to ER via Ambulatory with complaints of l arm ma2 tingling. 12:25 left HAND tingling x 1 day associated with mild gradual headache, she had that before . ma2 Onset: The symptoms/episode began/occurred gradually, 2 day(s) ago. Severity of symptoms: At their worst the symptoms were very mild in the emergency department the symptoms are unchanged. The patient has not experienced similar symptoms in the past. - Immunization history:: Adult Immunizations up to date. - Social history:: Patient/guardian denies using alcohol, street drugs, The patient lives with family, Smoking status: Patient/guardian denies using tobacco. - Ebola Screening: : No symptoms or risks identified at this time. - Family history:: not pertinent. ROS: 12:25 Constitutional: Negative for fever, chills, and weight loss. ma2 12:25 All other systems are negative. 12:25 Neuro: Negative for altered mental status, dizziness, gait disturbance, headache, ma2 hearing loss, loss of consciousness, numbness, seizure activity, speech changes, syncope, near syncope, tinnitus, tremor, visual changes, weakness, acute changes. Exam: 12:25 Constitutional: This is a well developed, well nourished patient who is awake, alert, ma2 and in no acute distress. Head/Face: Normocephalic, atraumatic. Eyes: Pupils equal round and reactive to light, extra-ocular motions intact. Lids and lashes normal. Conjunctiva and sclera are non-icteric and not injected. Cornea within normal limits. Periorbital areas with no swelling, redness, or edema. ENT: Nares patent. No nasal discharge, no septal abnormalities noted. Tympanic membranes are normal and external auditory canals are clear. Oropharynx with no redness, swelling, or masses, exudates, or evidence of obstruction, uvula midline. Mucous membranes moist. Neck: Trachea midline, no thyromegaly or masses palpated, and no cervical lymphadenopathy. Supple, full range of motion without nuchal rigidity, or vertebral point tenderness. No Meningismus. Chest/axilla: Normal chest wall appearance and motion. Nontender with no deformity. No lesions are appreciated. Cardiovascular: Regular rate and rhythm with a normal S1 and S2. No gallops, murmurs, or rubs. Normal PMI, no JVD. No pulse deficits. Respiratory: Lungs have equal breath sounds bilaterally, clear to auscultation and percussion. No rales, rhonchi or wheezes noted. No increased work of breathing, no retractions or nasal flaring. Abdomen/GI: Soft, non-tender, with normal bowel sounds. No distension or tympany. No guarding or rebound. No evidence of tenderness throughout. Back: No spinal tenderness. No costovertebral tenderness. Full range of motion. Skin: Warm, dry with normal turgor. Normal color with no rashes, no lesions, and no evidence of cellulitis. MS/ Extremity: Pulses equal, no cyanosis. Neurovascular intact. Full, normal range of motion. Neuro: Awake and alert, GCS 15, oriented to person, place, time, and situation. Cranial nerves II-XII grossly intact. Motor strength 5/5 in all extremities. Sensory grossly intact. Cerebellar exam normal. Normal gait. Psych: Awake, alert, with orientation to person, place and time. Behavior, mood, and affect are within normal limits. Vital Signs: 10:51 BP 152 / 82; Pulse 74; Resp 14; Temp 98.2; Pulse Ox 98% ; Weight 112.04 kg; Height 5 sv ft. 6 in. (167.64 cm); Pain 5/10; 11:30 BP 132 / 87; Pulse 67; Resp 16; Pulse Ox 99% ; sv 12:00 BP 114 / 72; Pulse 66; Resp 20; Pulse Ox 100% ; sv 13:14 BP 127 / 82; Pulse 67; Resp 19; Pulse Ox 100% on R/A; Pain 0/10; hb 14:00 BP 123 / 88; Pulse 68; Resp 16; Pulse Ox 99% ; sv 10:51 Body Mass Index 39.87 (112.04 kg, 167.64 cm) sv NIH Stroke Scale Scores: 11:18 NIHSS Score: 3 sv MDM: 10:48 Patient medically screened. ma2 12:25 Differential Diagnosis migraine headache, electrolyte abnormalities vs CTS. Data mt2 reviewed: vital signs, nurses notes. Counseling: I had a detailed discussion with the patient and/or guardian regarding: the historical points, exam findings, and any diagnostic results supporting the discharge/admit diagnosis, the presence of at least one elevated blood pressure reading (>120/80) during this emergency department visit, the need for outpatient follow up. Response to treatment: the patient's symptoms have resolved after treatment. 12:46 ED course: after discussing with the nurse patient had weakness when she presented to [facility] er, although patient did not complain of that, when i examined her she was back to normal with no deficit, given this could be a TIA, I discussed the case with dr. Harrell who advised to get an MRI and advised against observation as she does not have risk factors for stroke at this time. dr. harrell advised for outpatient workup of possible TIA. to be discharged on low dose ASA, folic acid and statin and he will see her for outpatient workup. . 14:22 ED course: mri negative . ma2 Administered Medications: No medications were administered Point of Care Testing: Blood Glucose: 10:53 Blood Glucose: 127 mg/dL; sv Ranges: Critical Glucose Levels:Adult <50 mg/dl or >400 mg/dl <40 mg/dl or >180 mg/dl Disposition: 02/05/19 14:23 Discharged to Home. Impression: Headache. - Condition is Stable. - Discharge Instructions: Tension Headache, [id number]. - Prescriptions for aspirin 81 mg Oral tablet,chewable - chew 1 tablet by ORAL route once daily; 60 tablet. Reglan 10 mg Oral Tablet - take 1 tablet by ORAL route every 6 hours . take 30 minutes before meals and at bedtime; 100 tablet. Folic Acid 1 mg Oral Tablet - take 1 tablet by ORAL route once daily; 30 tablet. Lovastatin 10 mg Oral Tablet - take 1 tablet by ORAL route once daily with evening meal; 20 tablet. - Medication Reconciliation Form, Thank You Letter, Antibiotic Education, Prescription Opioid Use form. - Follow up: Private Physician; When: Tomorrow; Reason: Recheck today's complaints, Continuance of care. Follow up: Benny Harrell MD; When: Tomorrow; Reason: Continuance of care. - Notes: you will need outpatient workup for possible transient ischemic attack, follow up with neurologist for more testing. Take Aspirin everyday untill you see your neurologist. NIH Stroke Scale - NIH Stroke Score Date: 02/05/2019 Time: 11:18 Total Score = 3 1a. Level of Consciousness (LOC) - 0(Alert) 1b. Level of Consciousness (LOC) (Year \T\ Age) - 0(Both) 1c. LOC Commands (Open \T\ Closes Eyes/Integrated [employer] Layout Designer) - 0(Both) 2. Best Gaze (Lateral Gaze Paresis) - 0(Normal) 3. Visual Field Loss - 0(No visual loss) 4. Facial Palsy - 0(Normal) 5a. Left Arm: Motor (10-second hold) - 1(Drift) 5b. Right Arm: Motor (10-second hold) - 0(No drift) 6a. Left Leg: Motor (5-second hold - always test supine) - 1(Drift) 6b. Right Leg: Motor (5-second hold - always test supine) - 0(No drift) 7. Limb Ataxia (finger/nose \T\ heel/rodrigez - test with eyes open) - 0(Absent) 8. Sensory Loss (pinprick arms/legs/face) - 1(Mild to moderate loss) 9. Best Language: Aphasia (description/naming/reading) - 0(No aphasia) 10. Dysarthria (speech clarity - read or repeat words) - 0(Normal) 11. Extinction and Inattention (visual/tactile/auditory/spatial/personal) - 0(No abnormality) Initials: Signatures: Carole Mccartney RN RN Isabel Pitts RN RN aa5 Felix Cox MD MD ma2 Corrections: (The following items were deleted from the chart) 12:46 12:28 02/05/2019 12:28 Discharged to Home. Impression: Headache. Condition is ma2 Stable. Discharge Instructions: General Headache Without Cause. Prescriptions for Reglan 10 mg Oral Tablet - take 1 tablet by ORAL route every 6 hours . take 30 minutes before meals and at bedtime; 100 tablet, Tylenol-Codeine #3 300-30 mg Oral Tablet - take 2 tablet by ORAL route every 6 hours As needed; 30 tablet. and Forms are Medication Reconciliation Form, Thank You Letter, Antibiotic Education, Prescription Opioid Use. Follow up: Private Physician; When: Tomorrow; Reason: Recheck today's complaints, Continuance of care. ma2 14:27 14:23 02/05/2019 14:23 Discharged to Home. Impression: Headache. Condition is ma2 Stable. Discharge Instructions: Tension Headache, [id number]. Prescriptions for Reglan 10 mg Oral Tablet - take 1 tablet by ORAL route every 6 hours . take 30 minutes before meals and at bedtime; 100 tablet, Tylenol-Codeine #3 300-30 mg Oral Tablet - take 2 tablet by ORAL route every 6 hours As needed; 30 tablet, aspirin 81 mg Oral tablet,chewable - chew 1 tablet by ORAL route once daily; 60 tablet, Reglan 10 mg Oral Tablet - take 1 tablet by ORAL route every 6 hours . take 30 minutes before meals and at bedtime; 100 tablet, Folic Acid 1 mg Oral Tablet - take 1 tablet by ORAL route once daily; 30 tablet, Lovastatin 10 mg Oral Tablet - take 1 tablet by ORAL route once daily with evening meal; 20 tablet. and Forms are Medication Reconciliation Form, Thank You Letter, Antibiotic Education, Prescription Opioid Use. Follow up: Private Physician; When: Tomorrow; Reason: Recheck today's complaints, Continuance of care. ma2 14:53 14:27 02/05/2019 14:23 Discharged to Home. Impression: Headache. Condition is sv Stable. Discharge Instructions: Tension Headache, [id number]. Prescriptions for Reglan 10 mg Oral Tablet - take 1 tablet by ORAL route every 6 hours . take 30 minutes before meals and at bedtime; 100 tablet, Tylenol-Codeine #3 300-30 mg Oral Tablet - take 2 tablet by ORAL route every 6 hours As needed; 30 tablet, aspirin 81 mg Oral tablet,chewable - chew 1 tablet by ORAL route once daily; 60 tablet, Reglan 10 mg Oral Tablet - take 1 tablet by ORAL route every 6 hours . take 30 minutes before meals and at bedtime; 100 tablet, Folic Acid 1 mg Oral Tablet - take 1 tablet by ORAL route once daily; 30 tablet, Lovastatin 10 mg Oral Tablet - take 1 tablet by ORAL route once daily with evening meal; 20 tablet. and Forms are Medication Reconciliation Form, Thank You Letter, Antibiotic Education, Prescription Opioid Use. Follow up: Private Physician; When: Tomorrow; Reason: Recheck today's complaints, Continuance of care. Follow up: Benny Harrell; When: Tomorrow; Reason: Continuance of care. ma2
--- NOTE | 2019-02-05 23:34 | ER ---
Nurse's Notes [facility] [place] Name: Wandy Tucker Age: 63 yrs Sex: Female : 1955 Arrival Date: 02/05/2019 Time: 10:46 Bed 7 Private MD: Shaka Anthony Diagnosis: Headache Presentation: 02/05 10:46 Presenting complaint: Patient states: "I woke up at 8am today feeling fine and then at aa5 9 am I started having left arm tingling and a headache". Pt also c/o mild tingling to left thigh. No facial or arm drifts noted, equal debit agent noted. 10:46 Transition of care: patient was not received from another setting of care. Onset of aa5 symptoms was February 05, 2019. Risk Assessment: Do you want to hurt yourself or someone else? Patient reports no desire to harm self or others. Care prior to arrival: None. 10:46 Acuity: JAVED 2 aa5 10:46 Method Of Arrival: Ambulatory aa5 10:46 An acute neurological deficit is present. Pre-hospital glucose is not applicable to aa5 this patient. 10:51 Initial Sepsis Screen: Does the patient meet any 2 criteria? No. Patient's initial sv sepsis screen is negative. Does the patient have a suspected source of infection? No. Patient's initial sepsis screen is negative. Triage Assessment: 11:23 The onset of the patients symptoms was February 05, 2019 at 08:30. sv Stroke Activation: Symptom onset < 3 hours Physician: Stroke Attending; Name: ; Notified At: ; Arrived At: Physician: Chief Stroke Resident; Name: ; Notified At: ; Arrived At: Physician: Stroke Resident; Name: ; Notified At: ; Arrived At: Physician: ED Attending; Name: ; Notified At: ; Arrived At: Physician: ED Resident; Name: ; Notified At: ; Arrived At: - Immunization history:: Adult Immunizations up to date. - Social history:: Patient/guardian denies using alcohol, street drugs, The patient lives with family, Smoking status: Patient/guardian denies using tobacco. - Ebola Screening: : No symptoms or risks identified at this time. - Family history:: not pertinent. Screenin:22 Abuse screen: Denies threats or abuse. Denies injuries from another. Nutritional sv screening: No deficits noted. Tuberculosis screening: No symptoms or risk factors identified. Fall Risk No fall in past 12 months (0 pts). No secondary diagnosis (0 pts). IV access (20 points). Ambulatory Aid- None/Bed Rest/Nurse Assist (0 pts). Gait- Weak (10 pts.). Mental Status- Oriented to own ability (0 pts). Total Stearns Fall Scale indicates Low Risk Score (25-44 pts). Fall prevention measures have been instituted. Side Rails Up X 2 Placed close to Nursing Station Frequent Obs/Assesments occuring Family Present and informed to notify staff if they need to leave bedside As available Patient and Family Educated on Fall Prevention Program and strategies. Assessment: 10:45 Reassessment: Code Stroke called. sv 10:46 Reassessment: Pt taken to CT accompanied by me . aa5 10:51 Reassessment: Pt back from CT . aa5 10:51 VAN Scoring: Arm Drift: Minor drift Visual Disturbance: No visual disturbance noted. sv Aphasia: No aphasia noted. Neglect: No neglect noted. 10:55 General: Appears in no apparent distress. comfortable, well groomed, well developed, sv Behavior is calm, cooperative, appropriate for age. Pain: Complains of pain in forehead Pain currently is 5 out of 10 on a pain scale. Quality of pain is described as throbbing, Pain began 0830 Is continuous. Neuro: Level of Consciousness is awake, alert, obeys commands, Oriented to person, place, time, situation, Cat Operator are weak on left Moves all extremities. Full function Gait is steady, but lost her balance when she stood up from the wheelchair to get in to the stretcher d/t dizziness.. Speech is normal, Facial symmetry appears normal, Facial symmetry: tongue is midline, Reports dizziness, since 1055 headache frontal area, since 0830 numbness in left arm and medial aspect of left thigh weakness in left arm and left leg. Cardiovascular: Patient's skin is warm and dry. Pulses are 3+ in right radial artery and left radial artery Rhythm is sinus rhythm Chest pain is denied. Respiratory: Airway is patent Respiratory effort is even, unlabored, Respiratory pattern is regular, symmetrical. Derm: Skin is intact, Skin is pink, warm \\T\\ dry. Musculoskeletal: Range of motion: intact in all extremities. 11:05 Patient has been NPO before screening. The patient is alert, and able to follow sv commands. The patient does not exhibit slurred or garbled speech. The patient is not exhibiting difficulty speaking. The patient does not exhibit difficulty understanding words. The patient is able to swallow own secretions with no drooling or need for suction. Patient tolerated one teaspoon of water. No drooling, immediate coughing, gurgling, or clearing of the throat was noted. The patient tolerated 90mL of water. No drooling, immediate coughing, gurgling, or clearing of the throat was noted. The patient passed the bedside swallow screening. Oral medications may be given as ordered. Contact Physician for further diet orders. Provider notified of bedside swallow screening results: Felix Cox MD. 11:08 Reassessment: CBC drawn and sent. sv 12:00 Reassessment: Patient appears in no apparent distress at this time. No changes from sv previously documented assessment. Patient and/or family updated on plan of care and expected duration. Pain level reassessed. Patient is alert, oriented x 3, equal unlabored respirations, skin warm/dry/pink. 12:25 Reassessment: Patient appears in no apparent distress at this time. No changes from sv previously documented assessment. Patient and/or family updated on plan of care and expected duration. Pain level reassessed. Patient is alert, oriented x 3, equal unlabored respirations, skin warm/dry/pink. 12:39 Reassessment: Pt ambulated down the hallway with myself. Pt stated that she didn't feel sv as dizzy as she did earlier but she did feel sleepy. Pt ambulated with no difficulty noted. 13:14 Reassessment: Patient appears in no apparent distress at this time. Patient and/or hb family updated on plan of care and expected duration. Pain level reassessed. Patient is alert, oriented x 3, equal unlabored respirations, skin warm/dry/pink. 14:52 Reassessment: Patient appears in no apparent distress at this time. Patient and/or sv family updated on plan of care and expected duration. Pain level reassessed. Patient is alert, oriented x 3, equal unlabored respirations, skin warm/dry/pink. Vital Signs: 10:51 BP 152 / 82; Pulse 74; Resp 14; Temp 98.2; Pulse Ox 98% ; Weight 112.04 kg; Height 5 sv ft. 6 in. (167.64 cm); Pain 5/10; 11:30 BP 132 / 87; Pulse 67; Resp 16; Pulse Ox 99% ; sv 12:00 BP 114 / 72; Pulse 66; Resp 20; Pulse Ox 100% ; sv 13:14 BP 127 / 82; Pulse 67; Resp 19; Pulse Ox 100% on R/A; Pain 0/10; hb 14:00 BP 123 / 88; Pulse 68; Resp 16; Pulse Ox 99% ; sv 10:51 Body Mass Index 39.87 (112.04 kg, 167.64 cm) sv NIH Stroke Scale Scores: 11:18 NIHSS Score: 3 sv ED Course: 10:46 Patient arrived in ED. hb 10:46 Shaka Anthony MD is Private Physician. hb 10:46 Arm band placed on. aa5 10:48 Felix Cox MD is Attending Physician. ma2 10:51 Patient has correct armband on for positive identification. Placed in gown. Bed in low sv position. Call light in reach. Side rails up X 1. Adult w/ patient. campus monitor on. Pulse ox on. NIBP on. Door closed. Head of bed elevated. 10:53 Initial lab(s) drawn, by wy, sent to lab. Inserted saline lock: 20 gauge in right sv antecubital area, using aseptic technique. Blood collected. Flushed right antecubital with 5 ml normal saline. 10:54 Triage completed. aa5 10:58 Carole Mccartney, DIPTI is Primary Nurse. sv 10:58 X-ray(s) taken. sv 13:29 Patient moved to MRI via stretcher. sv 14:00 Patient moved back from MRI. sv 14:00 Awaiting radiology results. sv 14:27 Benny Walker MD is Referral Physician. ma2 14:52 No provider procedures requiring assistance completed. IV discontinued, intact, sv bleeding controlled, No redness/swelling at site. Pressure dressing applied. Administered Medications: No medications were administered Point of Care Testing: Blood Glucose: 10:53 Blood Glucose: 127 mg/dL; sv Ranges: Output: 13:05 Urine: 350ml (Voided); Total: 350ml. sv Outcome: 12:28 Discharge ordered by . ma2 14:23 Discharge ordered by MD. ma2 14:52 Discharged to home ambulatory, with family. 14:52 Condition: stable 14:52 Discharge instructions given to patient, family, Instructed on discharge instructions, follow up and referral plans. medication usage, return to ER if symptoms get worse or any new symptoms start. Demonstrated understanding of instructions, follow-up care, medications, Prescriptions given X 4. 14:53 Patient left the ED. NIH Stroke Scale - NIH Stroke Score Date: 02/05/2019 Time: 11:18 Total Score = 3 1a. Level of Consciousness (LOC) - 0(Alert) 1b. Level of Consciousness (LOC) (Year \\T\\ Age) - 0(Both) 1c. LOC Commands (Open \\T\\ Closes Eyes/Ash Handler) - 0(Both) 2. Best Gaze (Lateral Gaze Paresis) - 0(Normal) 3. Visual Field Loss - 0(No visual loss) 4. Facial Palsy - 0(Normal) 5a. Left Arm: Motor (10-second hold) - 1(Drift) 5b. Right Arm: Motor (10-second hold) - 0(No drift) 6a. Left Leg: Motor (5-second hold - always test supine) - 1(Drift) 6b. Right Leg: Motor (5-second hold - always test supine) - 0(No drift) 7. Limb Ataxia (finger/nose \\T\\ heel/rodrigez - test with eyes open) - 0(Absent) 8. Sensory Loss (pinprick arms/legs/face) - 1(Mild to moderate loss) 9. Best Language: Aphasia (description/naming/reading) - 0(No aphasia) 10. Dysarthria (speech clarity - read or repeat words) - 0(Normal) 11. Extinction and Inattention (visual/tactile/auditory/spatial/personal) - 0(No abnormality) Initials: sv Signatures: Carole Mccartney RN RN Isabel Pitts RN RN aa5 Aarti Silveira RN RN Felix Cox MD MD ma2 Corrections: (The following items were deleted from the chart) 15:41 10:55 Neuro: Level of Consciousness is awake, alert, obeys commands, Oriented sv to person, place, time, situation, Cat Operator are weak on left Moves all extremities. Full function Gait is steady, Speech is normal, Facial symmetry appears normal, Facial symmetry: tongue is midline, Reports dizziness, since 1055 headache frontal area, since 0830 numbness in left arm and medial aspect of left thigh weakness in left arm and left leg sv
[2019-02-05 23:47] VITALS: TEMP 98.2
[2019-02-05 23:53] VITALS: BP 123/88; O2SAT 99
--- NOTE | 2019-02-07 08:13 | EKG ---
Test Date: 2019-02-05 Test Time: 11:05:18 Trouble Shooter: CORINE MEASUREMENT RESULTS: Intervals: Rate: 75 TX: 182 QRSD: 78 QT: 388 QTc: 433 [place]: P: 36 TX: 182 QRS: 8 T: 23 INTERPRETIVE STATEMENTS: Normal sinus rhythm Normal ECG Compared to ECG 10/16/2017 17:30:27 No significant changes Electronically Signed On 02-07-19 08:10:32 PASTA MAKER by Lito Hernández
== END 2019-02-05 14:53 | disposition home or self-care (01) ==
LOC: ER 10:44
DX: R51 Headache (principal)
CPT/HCPCS: 93005; 85025; 36415; 85610; 82947; 85730; 84484; 80053; 70450; 71045; 70551; 99285; J2765; J1200; J7030

== ENCOUNTER 2020-07-17 10:45 | Emergency (ER) | payer OTHER ==
[2020-07-17 14:19] LABS: Hematocrit 40.5 % (36.0-45.0); Lymphocytes % 27.7 % (15.3-44.8); MPV 8.8 fL (7.6-11.3); RBC Red Blood Cell Count 4.76 M/uL (3.86-4.86)
[2020-07-17 14:28] LABS: Protime INR 1.06
[2020-07-17 14:42] LABS: Bilirubin Direct 0.2 mg/dL (0-0.2); Bilirubin Total 0.8 mg/dL (0.2-1.0); Protein, Total 7.4 g/dL (6.4-8.2)
--- NOTE | 2020-07-17 14:43 | RAD REPORT ---
EXAM DESCRIPTION: CT - Abdomen Pelvis W Contrast - 07/17/2020 2:19 pm CLINICAL HISTORY: Abdominal pain COMPARISON: 2017 TECHNIQUE: Computed axial tomography of the abdomen pelvis was obtained. 100 cc Isovue-300 was admin istered intravenously. Oral contrast was not requested which limits evaluation of bowel. All CT scans are performed using dose optimization technique as appropriate and may include automated exposure control or mA/KV adjustment according to patient size. FINDINGS: The liver, pancreas, adrenal and left kidney appear unremarkable. 4 centimeter left renal cyst The spleen is borderline enlarged Cholelithiasis. No gallbladder wall thickening There is no evidence of diverticulitis. Appendectomy. Hysterectomy Diverticulum stems from the duodenum. Small umbilical hernia contains fat IMPRESSION: Cholelithiasis without evidence of cholecystitis
--- NOTE | 2020-07-17 15:47 | ER ---
Nurse's Notes [facility] Name: Wandy Tucker Age: 64 yrs Sex: Female : 1955 Arrival Date: 07/17/2020 Time: 10:51 Bed 28 Private MD: Diagnosis: Rectal Bleeding;Other hemorrhoids Presentation: 07/17 10:57 Chief complaint: Patient states: "i am having some rectal bleeding. it started when i jd3 was wiping, but it has progressed to being bright red blood any time I put something down there.". Coronavirus screen: At this time, the client does not indicate any symptoms associated with coronavirus-19. Ebola Screen: Patient negative for fever greater than or equal to 101.5 degrees Fahrenheit, and additional compatible Ebola Virus Disease symptoms. Initial Sepsis Screen: Does the patient meet any 2 criteria? No. Patient's initial sepsis screen is negative. Does the patient have a suspected source of infection? No. Patient's initial sepsis screen is negative. Risk Assessment: Do you want to hurt yourself or someone else? Patient reports no desire to harm self or others. Onset of symptoms was July 16, 2020. 10:57 Method Of Arrival: Ambulatory jd3 10:57 Acuity: JAVED 3 jd3 Historical: - Allergies: 10:59 No Known Allergies; jd3 - Home Meds: 10:59 Paxil Oral [Active]; lovastatin Oral [Active]; jd3 - PMHx: 10:59 Depression; High Cholesterol; jd3 - PSHx: 10:59 ; Hysterectomy; Appendectomy; jd3 - Immunization history:: Adult Immunizations up to date, Client reports receiving the 2nd dose of the Covid vaccine. - Social history:: Smoking status: Patient denies any tobacco usage or history of. Screenin:47 Abuse screen: Denies threats or abuse. Denies injuries from another. Nutritional ph screening: No deficits noted. Tuberculosis screening: No symptoms or risk factors identified. Fall Risk None identified. Assessment: 13:10 Reassessment: Dr Estes at bedside for rectal exam. ph 13:47 Reassessment: Patient appears in no apparent distress at this time. Patient and/or ph family updated on plan of care and expected duration. Pain level reassessed. Patient is alert, oriented x 3, equal unlabored respirations, skin warm/dry/pink. 13:47 General: Appears in no apparent distress. comfortable, well groomed, Behavior is calm, ph cooperative, appropriate for age. Pain: Denies pain. Neuro: Level of Consciousness is awake, alert, obeys commands, Oriented to person, place, time, situation. Cardiovascular: Capillary refill < 3 seconds in bilateral fingers Patient's skin is warm and dry. Respiratory: Airway is patent Respiratory effort is even, unlabored, Respiratory pattern is regular, symmetrical, Denies shortness of breath. GI: Reports rectal bleeding, Patient currently denies abdominal pain, nausea, vomiting. Derm: Skin is intact, Skin is pink, warm \\T\\ dry. Musculoskeletal: Circulation, motion, and sensation intact. Range of motion: intact in all extremities. 14:46 Reassessment: Patient appears in no apparent distress at this time. Patient and/or ph family updated on plan of care and expected duration. Pain level reassessed. Patient is alert, oriented x 3, equal unlabored respirations, skin warm/dry/pink. Awaiting CT and lab results. Vital Signs: 10:59 BP 137 / 79; Pulse 71; Resp 18 S; Temp 97.9(TE); Pulse Ox 95% on R/A; Weight 108.41 kg jd3 (R); Height 5 ft. 5 in. (165.10 cm) (R); Pain 0/10; 13:00 BP 127 / 70; Pulse 68; Resp 18; Pulse Ox 96% on R/A; ph 14:00 BP 130 / 73; Pulse 72; Resp 18; Pulse Ox 98% on R/A; ph 15:30 BP 132 / 75; Pulse 69; Resp 16; Temp 97.5; Pulse Ox 97% on R/A; ph 10:59 Body Mass Index 39.77 (108.41 kg, 165.10 cm) jd3 ED Course: 10:51 Patient arrived in ED. mr 10:58 Triage completed. jd3 11:00 Arm band placed on. jd3 12:16 Betsy Varela, DIPTI is Primary Nurse. ph 12:27 Suraj Estes MD is Attending Physician. kdr 13:47 Patient has correct armband on for positive identification. Bed in low position. Call ph light in reach. Side rails up X 1. Pulse ox on. NIBP on. Door closed. Noise minimized. Warm blanket given. 13:48 Missed attempt(s): 20 gauge in left antecubital area. Bleeding controlled, band aid ph applied, catheter tip intact. Missed attempt(s): 22 gauge in right Bleeding controlled, band aid applied, catheter tip intact. 14:19 CT Abd/Pelvis - IV Contrast Only In Process Unspecified. EDMS 14:20 Inserted saline lock: 24 gauge in left antecubital area, using aseptic technique. ph 14:46 No provider procedures requiring assistance completed. ph 16:07 IV discontinued, intact, bleeding controlled, No redness/swelling at site. Pressure ph dressing applied. Administered Medications: No medications were administered Outcome: 15:47 Discharge ordered by . kdr 16:05 Discharged to home ambulatory. ph 16:05 Condition: good 16:05 Discharge instructions given to patient, Instructed on discharge instructions, follow up and referral plans. medication usage, Demonstrated understanding of instructions, follow-up care, medications, Prescriptions given X 2. 16:10 Patient left the ED. ph Signatures: Dispatcher [employer] EDMS Suraj Estes MD MD kdr Rivera, Mary mr Betsy Varela RN RN ph Frank Germain RN RN jd3
--- NOTE | 2020-07-17 15:47 | EDPHYS ---
Physician Documentation [facility] Name: Wandy Tucker Age: 64 yrs Sex: Female : 1955 Arrival Date: 07/17/2020 Time: 10:51 Bed 28 Private MD: ED Physician Suraj Estes HPI: 07/17 17:57 This 64 yrs old Female presents to ER via Ambulatory with complaints of kdr Rectal Bleeding. 17:57 The patient presents to the emergency department with bleeding from the rectum/anus, kdr that is mild. Onset: The symptoms/episode began/occurred gradually, Last Monday - noted that she had pinkish rectal bleeding that lightened through the week and then heavier today.. Context: the patient has a known history of hemorrhoids. Modifying factors: The symptoms are alleviated by nothing, The symptoms are aggravated by bowel movement. Associate signs and symptoms: The patient has no apparent associated signs or symptoms. The patient has not experienced similar symptoms in the past. The patient has not recently seen a physician. Historical: - Allergies: 10:59 No Known Allergies; jd3 - Home Meds: 10:59 Paxil Oral [Active]; lovastatin Oral [Active]; jd3 - PMHx: 10:59 Depression; High Cholesterol; jd3 - PSHx: 10:59 ; Hysterectomy; Appendectomy; jd3 - Immunization history:: Adult Immunizations up to date, Client reports receiving the 2nd dose of the Covid vaccine. - Social history:: Smoking status: Patient denies any tobacco usage or history of. ROS: 17:57 Constitutional: Negative for fever, chills, and weight loss, Eyes: Negative for injury, kdr pain, redness, and discharge, ENT: Negative for injury, pain, and discharge, Neck: Negative for injury, pain, and swelling, Cardiovascular: Negative for chest pain, palpitations, and edema, Respiratory: Negative for shortness of breath, cough, wheezing, and pleuritic chest pain, Back: Negative for injury and pain, : Negative for injury, bleeding, discharge, and swelling, MS/Extremity: Negative for injury and deformity, Skin: Negative for injury, rash, and discoloration, Neuro: Negative for headache, weakness, numbness, tingling, and seizure activity. Psych: Negative for depression, anxiety, suicide ideation, homicidal ideation, and hallucinations, Allergy/Immunology: Negative for hives, rash, and allergies, Endocrine: Negative for neck swelling, polydipsia, polyuria, polyphagia, and marked weight changes, Hematologic/Lymphatic: Negative for swollen nodes, abnormal bleeding, and unusual bruising. 17:57 Abdomen/GI: Positive for rectal bleeding, Negative for abdominal pain, nausea, vomiting, and diarrhea, constipation, abdominal cramps, abdominal distension, anorexia, dysphagia, hematemesis, black/tarry stool, rectal pain. Exam: 17:57 Constitutional: This is a well developed, well nourished patient who is awake, alert, kdr and in no acute distress. Head/Face: Normocephalic, atraumatic. Eyes: Pupils equal round and reactive to light, extra-ocular motions intact. Lids and lashes normal. Conjunctiva and sclera are non-icteric and not injected. Cornea within normal limits. Periorbital areas with no swelling, redness, or edema. Neck: Trachea midline, no thyromegaly or masses palpated, and no cervical lymphadenopathy. Supple, full range of motion without nuchal rigidity, or vertebral point tenderness. No Meningismus. Chest/axilla: Normal chest wall appearance and motion. Nontender with no deformity. No lesions are appreciated. Cardiovascular: Regular rate and rhythm with a normal S1 and S2. No gallops, murmurs, or rubs. Normal PMI, no JVD. No pulse deficits. Respiratory: Lungs have equal breath sounds bilaterally, clear to auscultation and percussion. No rales, rhonchi or wheezes noted. No increased work of breathing, no retractions or nasal flaring. Back: No spinal tenderness. No costovertebral tenderness. Full range of motion. Skin: Warm, dry with normal turgor. Normal color with no rashes, no lesions, and no evidence of cellulitis. MS/ Extremity: Pulses equal, no cyanosis. Neurovascular intact. Full, normal range of motion. Neuro: Awake and alert, GCS 15, oriented to person, place, time, and situation. Cranial nerves II-XII grossly intact. Motor strength 5/5 in all extremities. Sensory grossly intact. Cerebellar exam normal. Normal gait. Psych: Awake, alert, with orientation to person, place and time. Behavior, mood, and affect are within normal limits. 17:57 Abdomen/GI: Inspection: abdomen appears normal, Bowel sounds: active, Palpation: abdomen is soft and non-tender, soft, nontender, Rectal exam: rectal tone normal, Stool: normal, guaiac positive, hemorrhoid(s), external, internal, without bleeding, without inflammation, without thrombosis, without pain, mass, is not appreciated, swelling, is not appreciated, tenderness, that is mild, fecal impaction, is not appreciated. Vital Signs: 10:59 BP 137 / 79; Pulse 71; Resp 18 S; Temp 97.9(TE); Pulse Ox 95% on R/A; Weight 108.41 kg jd3 (R); Height 5 ft. 5 in. (165.10 cm) (R); Pain 0/10; 13:00 BP 127 / 70; Pulse 68; Resp 18; Pulse Ox 96% on R/A; ph 14:00 BP 130 / 73; Pulse 72; Resp 18; Pulse Ox 98% on R/A; ph 15:30 BP 132 / 75; Pulse 69; Resp 16; Temp 97.5; Pulse Ox 97% on R/A; ph 10:59 Body Mass Index 39.77 (108.41 kg, 165.10 cm) jd3 MDM: 15:47 Patient medically screened. kdr 17:57 Data reviewed: vital signs, nurses notes, lab test result(s), radiologic studies. kdr Counseling: I had a detailed discussion with the patient and/or guardian regarding: the historical points, exam findings, and any diagnostic results supporting the discharge/admit diagnosis, lab results, radiology results, the need for outpatient follow up. 18:01 Physician consultation: Jeremy Zavala MD regarding consult, patient's condition, kdr outpatient follow-up, next week. 07/17 13:09 Order name: Basic Metabolic Panel kdr 07/17 13:09 Order name: CBC with Diff; Complete Time: 15:33 kdr 07/17 13:09 Order name: Hepatic Function; Complete Time: 15:33 kdr 07/17 13:09 Order name: Lipase; Complete Time: 15:33 kdr 07/17 13:09 Order name: PT-INR; Complete Time: 15:33 kdr 07/17 13:09 Order name: Basic Metabolic Panel; Complete Time: 15:33 EDMS 07/17 13:09 Order name: IV Saline Lock; Complete Time: 15:14 kdr 07/17 13:09 Order name: Labs collected and sent; Complete Time: 15:14 kdr 07/17 13:09 Order name: CT Abd/Pelvis - IV Contrast Only; Complete Time: 15:33 kdr 07/17 14:36 Order name: CREATININE WHOLE BLOOD; Complete Time: 15:33 EDMS Administered Medications: No medications were administered Disposition: 07/17/20 15:47 Discharged to Home. Impression: Rectal Bleeding, Other hemorrhoids. - Condition is Stable. - Discharge Instructions: High-Fiber Diet, Hemorrhoids, [id number], Gastrointestinal Bleeding, [id number]. - Prescriptions for Proctofoam HC 1- 1 % Rectal foam - insert 1 applicatorful by RECTAL route 3 times per day; 1 box. hydrocortisone acetate 25 mg Rectal suppository - insert 1 suppository by RECTAL route 3 times per day; 10 suppository. - Medication Reconciliation Form, Thank You Letter form. - Follow up: Private Physician; When: 2 - 3 days; Reason: If symptoms return, Further diagnostic work-up, Recheck today's complaints, Continuance of care, Re-evaluation by your physician. - Problem is new. - Symptoms are unchanged. Signatures: Dispatcher [employer] EDMS Suraj Estes MD MD kdr Betsy Varela RN RN Frank Germain RN RN jd3 Corrections: (The following items were deleted from the chart) 16:10 15:47 07/17/2020 15:47 Discharged to Home. Impression: Rectal Bleeding; Other ph hemorrhoids. Condition is Stable. Forms are Medication Reconciliation Form, Thank You Letter, Antibiotic Education, Prescription Opioid Use. Follow up: Private Physician; When: 2 - 3 days; Reason: If symptoms return, Further diagnostic work-up, Recheck today's complaints, Continuance of care, Re-evaluation by your physician. Problem is new. Symptoms are unchanged. kdr
[2020-07-17 17:06] VITALS: BP 132/75; TEMP 97.5; O2SAT 97
== END 2020-07-17 16:10 | disposition home or self-care (01) ==
LOC: ER 10:45
DX: K64.8 Other hemorrhoids (principal); F32.9 Major depressive disorder, single episode, unspecified; E78.00 Pure hypercholesterolemia, unspecified
CPT/HCPCS: 85025; 80048; 36415; 85610; 82565; 80076; 83690; 74177; 99284; Q9967

== ENCOUNTER 2020-08-24 07:23 | Day surgery (SDC) | payer BC, OTHER ==
[2020-08-24] MEDS ORDERED: Ringers Lactate 1,000 ML IV ONE (08:11)
[2020-08-24] MEDS ORDERED: propofoL 200 MG/20 ML VIAL IV ONE ×2 (08:54→08:55)
[2020-08-24] MEDS ORDERED: LIDOCAINE 1% MPF 5 ML VIAL ONE (08:55)
--- NOTE | 2020-08-24 09:12 | ENDO RPT ---
[address], [address] COLONOSCOPY PROCEDURE REPORT EXAM DATE: 08/24/2020 PATIENT NAME: Wandy Tucker MR #: [id number] BIRTHDATE: 1955 ATTENDING: Jeremy Zavala DR STATUS: outpatient DIVISION HEAD: Zuleima Rivera RN and Doris Stratton CST INDICATIONS: The patient is a 64 yr old Female here for a colonoscopy due to rectal bleeding PROCEDURE PERFORMED: Colonoscopy with biopsy MEDICATIONS: Per Anesthesia. ESTIMATED BLOOD LOSS: None CONSENT: The patient understands the risks and benefits of the procedure and understands that these risks include, but are not limited to: sedation, allergic reaction, infection, perforation and/or bleeding. Alternative means of evaluation and treatment include, among others: physical exam, x-rays, and/or surgical intervention. The patient elects to proceed with this endoscopic procedure. DESCRIPTION OF PROCEDURE: During intra-op preparation period all mechanical medical equipment was checked for proper function. Hand hygiene and appropriate measures for infection prevention was taken. Procedure, possible complications, alternatives including, but not limited to possibility of bleeding, perforation, tear, infection, sepsis, need for surgery, need for blood transfusion, were explained to the patient. After the risks, benefits and alternatives of the procedure were thoroughly explained, Informed consent was verified, confirmed and timeout was successfully executed by the treatment team. The patient was placed in the left lateral position. A digital rectal exam was performed and revealed internal hemorrhoids and A digital rectal exam was performed and revealed external hemorrhoids. After appropriate level of anesthesia, the scope was passed. The EC-[id number] ([id number]) endoscope was introduced through the anus and advanced to the cecum, which was identified by both the appendix and ileocecal valve. The quality of the prep was good. The instrument was then slowly withdrawn as the colon was fully examined. Scope withdrawal time was 9 minutes. COLON FINDINGS: Was found petechiae and at the ileocecal valve. A biopsy was performed using cold forceps. Small internal and external hemorrhoids were found. Retroflexed views revealed no abnormalities. The scope was then completely withdrawn from the patient and the procedure terminated. ADVERSE EVENTS: There were no complications. IMPRESSIONS: 1. Petechiae and at the ileocecal valve; biopsy was performed using cold forceps 2. Small internal and external hemorrhoids RECOMMENDATIONS: 1. avoid NSAIDS for 2 weeks 2. await biopsy results 3. fiber rich diet 4. follow-up: office 2 week(s) 5. Monitor for any evidence of rectal bleeding. 6. hemorrhoidal hygiene 7. increase dietary water RECALL: Return in 5 year(s) for Colonoscopy, pending biopsy results. Pending Biopsy Jeremy Zavala DR eSigned: Jeremy Zavala DR 08/24/2020 9:12 AM cc: CPT CODES: ICD9 CODES: PATIENT NAME: Wandy Tucker MR#: [id number]
[2020-08-24 11:41] VITALS: O2SAT 100
[2020-08-24 11:44] VITALS: BP 105/72; TEMP 96.8
== END 2020-08-24 09:40 | disposition home or self-care (01) ==
LOC: OR 07:23
PROVIDERS: ATTEND Surgery
PROC: 0DBC8ZX Excision of Ileocecal Valve, Via Natural or Artificial Opening Endoscopic, Diagnostic (ICD-10-PCS; principal; 2020-08-24 08:30)
DX: K62.5 Hemorrhage of anus and rectum (principal); K64.8 Other hemorrhoids; K64.4 Residual hemorrhoidal skin tags
CPT/HCPCS: 88305; 45380; J2704 ×2; J7120

== ENCOUNTER 2023-01-07 21:15 | Inpatient (IN) | payer OTHER, SELFPAY ==
--- OUTSIDE RECORDS SUMMARY | 2023-01-07 21:18 | XMS REPORT | Continuity of Care Document ---
:1955 Author Organization [facility] t Address [address] [place]. [address] [place] [address] Care Team Providers Name Role Phone Sha Morejon Attending Clinician Unavailable Hui Attending Clinician Unavailable DR MILES BROWN Attending Clinician Unavailable Sha Morejon Admitting Clinician Unavailable Hui Admitting Clinician Unavailable DR MILES BROWN Admitting Clinician Unavailable Payers Payer Name Policy Type Policy Number Effective Date Expiration Date S jesus [place] [id number] 2022 2houses 00:00:[place] [id number] 2022 (MEDICARE 00:00:00 SUPPLEMENT) [facility] [id number] 2021 SERVICES - [place] 00:00:00 [place] [id number] 2021 2022 00:00:00 00:00:00 [facility] [id number] 2022 (PPO) 00:00:00 Problems Condition Condition Condition Status Onset Resolution Last Treating Co mments Source Name Details Category Date Date Treatment Clinician Date Osteoarthr Osteoarthr Problem Active 2022-02 Malgorzata murcia itis of itis of 02-21 Orthope left hip Left Hip 00:00: dic joint Joint 00 Sports Medicin e Hip pain Hip Pain Problem Active 2022-02 Azale a 02-15 Orthope 00:00: dic 00 Sports Medicin e Lumbar Lumbar Problem Active 2022-02 Karyn spondylosi Spondylosi 02-15 Or thope s s 00:00: dic 00 Sports Medicin e Lumbar Lumbar Problem Active Karyn radiculopa Radiculopa 09-09 Or thope thy thy 00:00: dic 00 Sports Medicin e Tendinitis Tendinitis Problem Active 2021-02 A zalea of right of Right 08 Orthop e rotator Rotator 00:00: dic cuff Cuff 00 Sports Medicin e Osteoarthr Osteoarthr Problem Active 2021-02 A zalea itis of itis of 08 Orthope right knee Right Knee 00:00: di c joint Joint 00 Sports Medicin e Pain of Pain of Problem Active 2021-02 Karyn right Right 02-20 Orthope shoulder Shoulder 00:00: dic joint Joint 00 Sports Medicin e Pain of Pain of Problem Active 2021-02 Karyn right knee Right Knee 02-20 Or thope joint Joint 00:00: dic 00 Sports Medicin e Allergies, Adverse Reactions, Alerts Allergy Allergy Status Severity Reaction(s) Onset Inactive Treating Comm ents Source Name Type Date Date Clinician No Known DA Active U 2022-02 [facility] Allergie 03-04 Clear s 00:00: [place] 00 [facility] No Known DA Active [facility] Social History Smoking Status Start Date Stop Date Source Never Smoker K[facility] Orthoped[facility] Sports Medicine Medications Ordered Filled Start Stop Current Ordering Indication Dosage Frequency Signature Comments Components Source Medication Medication Date Date Medication? Clinician (SIG) Name Name Symbicort Symbicort No Symbicort Karyn 160 mcg-4.5 160 mcg-4.5 160 O rthope mcg/actuati mcg/actuati mcg-4.5 dic on HFA on HFA mcg/actuat Sport s aerosol aerosol ion HFA Medici n inhaler inhaler aerosol e inhaler cyclobenzap cyclobenzap No cyclobenza Karyn rine 5 mg rine 5 mg roxie 5 mg Orthope tablet TAKE tablet TAKE tablet dic 1 TABLET 3 1 TABLET 3 TAKE 1 S ports TIMES A DAY TIMES A DAY TABLET 3 Medicin BY ORAL BY ORAL TIMES A e ROUTE ROUTE DAY BY NEEDED. NEEDED. ORAL ROUTE NEEDED. furosemide furosemide No furosemide Karyn 20 mg 20 mg 20 mg Orthope tablet TAKE tablet TAKE tablet dic 1 TABLET BY 1 TABLET BY TAKE 1 Sports MOUTH TWICE MOUTH TWICE TABLET BY Medicin A DAY A DAY MOUTH e TWICE A DAY hydrocodone hydrocodone No hydrocodon Karyn 10 10 e 10 Orthope mg-acetamin mg-acetamin mg-acetami dic ophen 325 ophen 325 nophen 325 Sports mg tablet mg tablet mg tablet Medicin TAKE 1 TAKE 1 TAKE 1 e TABLET BY TABLET BY TABLET BY MOUTH EVERY MOUTH EVERY MOUTH 4 HOURS 4 HOURS EVERY 4 HOURS ibuprofen ibuprofen No ibuprofen Karyn 600 mg 600 mg 600 mg Orthope tablet TAKE tablet TAKE tablet dic 1 TABLET BY 1 TABLET BY TAKE 1 Sports MOUTH EVERY MOUTH EVERY TABLET BY Medicin 6 TO 8 6 TO 8 MOUTH e HOURS HOURS EVERY 6 TO NEEDED FOR NEEDED FOR 8 HOURS PAIN PAIN NEEDED FOR PAIN lisinopril lisinopril No lisinopril Karyn 10 mg 10 mg 10 mg Orthope tablet TAKE tablet TAKE tablet dic 1 TABLET BY 1 TABLET BY TAKE 1 Sports MOUTH EVERY MOUTH EVERY TABLET BY Medicin DAY MOUTH e EVERY DAY meloxicam meloxicam No meloxicam Karyn 15 mg 15 mg 15 mg Orthope tablet TAKE tablet TAKE tablet dic 1 TABLET BY 1 TABLET BY TAKE 1 Sports MOUTH EVERY MOUTH EVERY TABLET BY Medicin DAY DAY MOUTH e EVERY DAY prednisone prednisone No prednisone Karyn 10 mg 10 mg 10 mg Orthope tablet TAKE tablet TAKE tablet dic 1 TABLET BY 1 TABLET BY TAKE 1 Sports MOUTH THREE MOUTH THREE TABLET BY Medicin TIMES A DAY TIMES A DAY MOUTH e FOR 5 DAYS FOR 5 DAYS THREE TIMES A DAY FOR 5 DAYS tizanidine tizanidine No tizanidine Karyn 4 mg tablet 4 mg tablet 4 mg O rthope TAKE 1 TAKE 1 tablet dic TABLET BY TABLET BY TAKE 1 Spo rts MOUTH AT MOUTH AT TABLET BY Wv dicin BEDTIME BEDTIME MOUTH AT e NEEDED NEEDED BEDTIME NEEDED tramadol 50 tramadol 50 No tramadol Karyn mg tablet mg tablet 50 mg Orth ope TAKE 1 TAKE 1 tablet dic TABLET(S) TABLET(S) TAKE 1 Spo rts EVERY 8-12 EVERY 8-12 TABLET(S) Medicin HOURS BY HOURS BY EVERY 8-12 e ORAL ROUTE ORAL ROUTE HOURS BY NEEDED NEEDED ORAL ROUTE FOR PAIN. FOR PAIN. NEEDED FOR PAIN. cyclobenzap cyclobenzap No cyclobenza Karyn rine 5 mg rine 5 mg roxie 5 mg Orthope tablet TAKE tablet TAKE tablet dic 1 TABLET 3 1 TABLET 3 TAKE 1 S ports TIMES A DAY TIMES A DAY TABLET 3 Medicin BY ORAL BY ORAL TIMES A e ROUTE ROUTE DAY BY NEEDED. NEEDED. ORAL ROUTE NEEDED. furosemide furosemide No furosemide Karyn 20 mg 20 mg 20 mg Orthope tablet TAKE tablet TAKE tablet dic 1 TABLET BY 1 TABLET BY TAKE 1 Sports MOUTH TWICE MOUTH TWICE TABLET BY Medicin A DAY A DAY MOUTH e TWICE A DAY hydrocodone hydrocodone No hydrocodon Karyn 10 10 e 10 Orthope mg-acetamin mg-acetamin mg-acetami dic ophen 325 ophen 325 nophen 325 Sports mg tablet mg tablet mg tablet Medicin TAKE 1 TAKE 1 TAKE 1 e TABLET BY TABLET BY TABLET BY MOUTH EVERY MOUTH EVERY MOUTH 4 HOURS 4 HOURS EVERY 4 HOURS hydrocodone hydrocodone No 1 Q6H hydrocodon Karyn 7.5 7.5 e 7.5 Orthope mg-acetamin mg-acetamin mg-acetami dic ophen 325 ophen 325 nophen 325 Sports mg tablet mg tablet mg tablet Medicin Take 1 Take 1 Take 1 e tablet tablet tablet every 6 every 6 every 6 hours by hours by hours by oral route oral route oral route as needed. as needed. as needed. ibuprofen ibuprofen No ibuprofen Karyn 600 mg 600 mg 600 mg Orthope tablet TAKE tablet TAKE tablet dic 1 TABLET BY 1 TABLET BY TAKE 1 Sports MOUTH EVERY MOUTH EVERY TABLET BY Medicin 6 TO 8 6 TO 8 MOUTH e HOURS HOURS EVERY 6 TO NEEDED FOR NEEDED FOR 8 HOURS PAIN PAIN NEEDED FOR PAIN lisinopril lisinopril No lisinopril Karyn 10 mg 10 mg 10 mg Orthope tablet TAKE tablet TAKE tablet dic 1 TABLET BY 1 TABLET BY TAKE 1 Sports MOUTH EVERY MOUTH EVERY TABLET BY Medicin DAY DAY MOUTH e EVERY DAY meloxicam meloxicam No meloxicam Karyn 15 mg 15 mg 15 mg Orthope tablet TAKE tablet TAKE tablet dic 1 TABLET BY 1 TABLET BY TAKE 1 Sports MOUTH EVERY MOUTH EVERY TABLET BY Medicin DAY DAY MOUTH e EVERY DAY prednisone prednisone No prednisone Karyn 10 mg 10 mg 10 mg Orthope tablet TAKE tablet TAKE tablet dic 1 TABLET BY 1 TABLET BY TAKE 1 Sports MOUTH THREE MOUTH THREE TABLET BY Medicin TIMES A DAY TIMES A DAY MOUTH e FOR 5 DAYS FOR 5 DAYS THREE TIMES A DAY FOR 5 DAYS tizanidine tizanidine No tizanidine Karyn 4 mg tablet 4 mg tablet 4 mg O rthope TAKE 1 TAKE 1 tablet dic TABLET BY TABLET BY TAKE 1 Spo rts MOUTH AT MOUTH AT TABLET BY Wv dicin BEDTIME BEDTIME MOUTH AT e NEEDED NEEDED BEDTIME NEEDED tramadol 50 tramadol 50 No tramadol Karyn mg tablet mg tablet 50 mg Orth ope TAKE 1 TAKE 1 tablet dic TABLET(S) TABLET(S) TAKE 1 Spo rts EVERY 8-12 EVERY 8-12 TABLET(S) Medicin HOURS BY HOURS BY EVERY 8-12 e ORAL ROUTE ORAL ROUTE HOURS BY NEEDED NEEDED ORAL ROUTE FOR PAIN. FOR PAIN. NEEDED FOR PAIN. amlodipine amlodipine No amlodipine Karyn 5 mg tablet 5 mg tablet 5 mg O rthope TAKE 1 TAKE 1 tablet dic TABLET BY TABLET BY TAKE 1 Spo rts MOUTH EVERY MOUTH EVERY TABLET BY Medicin DAY FOR 30 DAY FOR 30 MOUTH e DAYS DAYS EVERY DAY FOR 30 DAYS furosemide furosemide No furosemide Karyn 20 mg 20 mg 20 mg Orthope tablet TAKE tablet TAKE tablet dic 1 TABLET BY 1 TABLET BY TAKE 1 Sports MOUTH TWICE MOUTH TWICE TABLET BY Medicin A DAY A DAY MOUTH e TWICE A DAY ibuprofen ibuprofen No ibuprofen Karyn 800 mg 800 mg 800 mg Orthope tablet TAKE tablet TAKE tablet dic 1 TABLET BY 1 TABLET BY TAKE 1 Sports MOUTH EVERY MOUTH EVERY TABLET BY Medicin 6 TO 8 6 TO 8 MOUTH e HOURS HOURS EVERY 6 TO NEEDED FOR NEEDED FOR 8 HOURS PAIN PAIN NEEDED FOR PAIN meloxicam meloxicam No 1 Q1D meloxicam Karyn 15 mg 15 mg 15 mg Orthope tablet Take tablet Take tablet dic 1 tablet 1 tablet Take 1 Sport s every day every day tablet Med icin by oral by oral every day e route. route. by oral route. paroxetine paroxetine No paroxetine Karyn 30 mg 30 mg 30 mg [facility] tablet TAKE tablet TAKE tablet dic 1 TABLET BY 1 TABLET BY TAKE 1 Sports MOUTH EVERY MOUTH EVERY TABLET BY Medicin DAY DAY MOUTH e EVERY DAY prednisone prednisone No 1 TID prednisone Karyn 10 mg 10 mg 10 mg Orthope tablet Take tablet Take tablet dic 1 tablet 3 1 tablet 3 Take 1 S ports times a day times a day tablet 3 Medicin by oral by oral times a e route for route for day by 10 days. 10 days. oral route for 10 days. amlodipine amlodipine No amlodipine Karyn 5 mg tablet 5 mg tablet 5 mg O rthope TAKE 1 TAKE 1 tablet dic TABLET BY TABLET BY TAKE 1 Spo rts MOUTH EVERY MOUTH EVERY TABLET BY Medicin DAY FOR 30 DAY FOR 30 MOUTH e DAYS DAYS EVERY DAY FOR 30 DAYS furosemide furosemide No furosemide Karyn 20 mg 20 mg 20 mg Orthope tablet TAKE tablet TAKE tablet dic 1 TABLET BY 1 TABLET BY TAKE 1 Sports MOUTH TWICE MOUTH TWICE TABLET BY Medicin A DAY A DAY MOUTH e TWICE A DAY ibuprofen ibuprofen No ibuprofen Karyn 800 mg 800 mg 800 mg Orthope tablet TAKE tablet TAKE tablet dic 1 TABLET BY 1 TABLET BY TAKE 1 Sports MOUTH EVERY MOUTH EVERY TABLET BY Medicin 6 TO 8 6 TO 8 MOUTH e HOURS HOURS EVERY 6 TO NEEDED FOR NEEDED FOR 8 HOURS PAIN PAIN NEEDED FOR PAIN meloxicam meloxicam No meloxicam Karyn 15 mg 15 mg 15 mg Orthope tablet Take tablet Take tablet dic 1 tablet 1 tablet Take 1 Sport s every day every day tablet Med icin by oral by oral every day e route. route. by oral route. paroxetine paroxetine No paroxetine Karyn 30 mg 30 mg 30 mg Orthope tablet TAKE tablet TAKE tablet dic 1 TABLET BY 1 TABLET BY TAKE 1 Sports MOUTH EVERY MOUTH EVERY TABLET BY Medicin DAY DAY MOUTH e EVERY DAY prednisone prednisone No prednisone Karyn 10 mg 10 mg 10 mg Orthope tablet TAKE tablet TAKE tablet dic 1 TABLET BY 1 TABLET BY TAKE 1 Sports MOUTH THREE MOUTH THREE TABLET BY Medicin TIMES A DAY TIMES A DAY MOUTH e FOR 10 DAYS FOR 10 DAYS THREE TIMES A DAY FOR 10 DAYS Immunizations Ordered Immunization Filled Immunization Date Status Commen ts Source Name Name influenza, seasonal, influenza, 2020-12-14 Completed [facility] injectable seasonal, 00:00:00 Orthopedic injectable Sports Medicin e influenza, seasonal, influenza, 2020-12-14 Completed [facility] ea injectable seasonal, 00:00:00 Orthopedic injectable Sports Medicin e pneumococcal pneumococcal 2020-02-14 Completed Karyn polysaccharide PPV23 polysaccharide 00:00:00 Orthopedic PPV23 Sports Medicin e pneumococcal pneumococcal 2020-02-14 Completed Karyn polysaccharide PPV23 polysaccharide 00:00:00 Orthopedic PPV23 Sports Medicin e influenza, seasonal, influenza, Unknown Completed Azal ea injectable seasonal, Orthopedic injectable Sports Medicin e pneumococcal pneumococcal Unknown Completed Karyn polysaccharide PPV23 polysaccharide Orthopedic PPV23 Sports Medicin e influenza, seasonal, influenza, Unknown Completed Azal ea injectable seasonal, Orthopedic injectable Sports Medicin e pneumococcal pneumococcal Unknown Completed Karyn polysaccharide PPV23 polysaccharide Orthopedic PPV23 Sports Medicin e Vital Signs Vital Name Observation Time Observation Value Comments Source Height 2022-12-29 00:00:00 65 [in_i] [facility] BMI (Body Mass 2022-12-29 00:00:00 40.8 kg/m2 Karyn Orthopedic Index) Sports Medicine Body Weight 2022-12-29 00:00:00 245 [lb_av] [facility] Body Weight 2022-12-26 00:00:00 245 [lb_av] [facility] Height 2022-12-26 00:00:00 65 [in_i] [facility] BMI (Body Mass 2022-12-26 00:00:00 40.8 kg/m2 Karyn Orthopedic Index) Sports Medicine Height 2020-09-18 04:25:00 165.1 CM Weight 2020-09-18 04:25:00 108.86 KG Height 2020-09-02 13:50:00 165.1 CM Weight 2020-09-02 13:50:00 108.4 KG Procedures Procedure Date / Time Performing Clinician Source Performed RADEX PELVIS 1/2 VIEWS 2022-12-16 00:00:00 [facility] Sports Medicine MRI, hip, w/o contrast 2022-12-16 00:00:00 Mejiale a Orthopedic Sports Medicine MRI, lumbar spine, w/o 2022-12-07 00:00:00 Sharon ornelas Orthopedic contrast Sports Medicine XR, shoulder, 2 or more 2021-12-21 00:00:00 Ana Laura patton Orthopedic view Sports Medicine XR, knee, 1 or 2 view 2021-12-21 00:00:00 [facility] Sports Medicine EXCISION OF RIGHT 2020-09-18 00:00:00 Bob Angeles dical TARSAL OPEN Center REPAIR RIGHT LOWER LEG 2020-09-18 00:00:00 Maxine coleman Medical TENDON OPEN Center Foot Surgery [facility] Hysterectomy [facility] Plan of Care Planned Activity Planned Date Details Comments Source Future Appointment 2023-01-17 Sean Langley, [address] [facility] 15:00:00 [facility]; , [place] [address] Encounters Start End Encounter Admission Attending Care Care Encounter Source Date/Time Date/Time Type Type Clinicians Facility Department ID 2023-01-03 2023-01-03 Outpatient CLAYTON Morejon [id number] [facility] 20:07:00 20:07:00 Sha Galindo [facility] 2023-01-03 2023-01-03 Outpatient KRIS Glasgow RADI [id number] [facility] 13:58:00 13:58:00 Sha [facility] 2022-12-29 2022-12-29 Sha Mason [facility] [place] - Ortho [id number] Karyn 00:00:00 00:00:00 MD Jean-Pierre: Izabel Vargas [address] FOG[facility]Of[facility] dic [facility], [place] [address], [place] [address] , Ph. [phone] 2022-12-28 2022-12-28 Outpatient FOG_Burke_R AOSM AOSM [id number] Karyn 00:00:00 00:00:00 Renate [id number] Ortho pe dic Sports Medicin e 2022-12-28 2022-12-28 Outpatient FOG_Burke_R AOSM AOSM [id number] Karyn 00:00:00 00:00:00 Renate [id number] Ortho pe dic Sports Medicin e 2022-12-26 2022-12-26 Outpatient FOG_Burke_R AOSM AOSM [id number] Karyn 00:00:00 00:00:00 Renate [id number] Ortho pe dic Sports Medicin e 2022-12-26 2022-12-26 Douglas Burgos [facility] [place] - [place] [id number] Karyn 00:00:00 00:00:00 Izabel Esqueda CIRCUIT MANAGER: [address] FOG[facility]Ofc dic [facility], [place] [address] , Ph. [phone] 2022-12-22 2022-12-22 Sha Mason [facility] [place] - [place] [id number] Karyn 00:00:00 00:00:00 MD Jean-Pierre: Izabel Vargas [address] FOG_Ofc dic [facility] [place], [facility] [address] , Ph. [phone] 2022-12-21 2022-12-21 Outpatient FOG_Burke_R AOSM AOSM [id number] Karyn 00:00:00 00:00:00 Renate [id number] Ortho pe dic Sports Medicin e 2022-12-21 2022-12-21 Outpatient FOG_Burke_R AOSM AOSM [id number] Karyn 00:00:00 00:00:00 Renate [id number] Ortho pe dic Sports Medicin e 2022-12-16 2022-12-16 Sha L [place] [place] - [place] [id number] Karyn 00:00:00 00:00:00 MD Jean-Pierre: Izabel Vargas [address] FOG[facility]Ofc dic [facility] [place] [place] [address] , Ph. [phone] 2022-12-15 2022-12-15 Outpatient FOG_Burke_R AOSM AOSM [id number] Karyn 00:00:00 00:00:00 Renate [id number] Ortho pe dic Sports Medicin e 2022-12-15 2022-12-15 Outpatient FOG_Burke_R AOSM AOSM [id number] Karyn 00:00:00 00:00:00 Renate [id number] Ortho pe dic Sports Medicin e 2022-12-07 2022-12-07 Outpatient FOG_Burke_R AOSM AOSM [id number] Karyn 00:00:00 00:00:00 Renate [id number] Ortho pe dic Sports Medicin e 2022-09-12 2022-09-12 Outpatient FOG_Burke_R AOSM AOSM [id number] Karyn 00:00:00 00:00:00 Renate [id number] Ortho pe dic Sports Medicin e 2022-09-09 2022-09-09 Outpatient FOG_Burke_R AOSM AOSM [id number] Karyn 00:00:00 00:00:00 Renate [id number] Ortho pe dic Sports Medicin e 2022-03-11 2022-03-11 Outpatient FOG_Burke_R AOSM AOSM [id number] Karyn 00:00:00 00:00:00 Renate [id number] Ortho pe dic Sports Medicin e 2022-03-11 2022-03-11 Outpatient FOG_Burke_R AOSM AOSM [id number] Karyn 00:00:00 00:00:00 Renate [id number] Ortho pe dic Sports Medicin e 2022-03-11 2022-03-11 Outpatient FOG_Burke_R AOSM AOSM [id number] Karyn 00:00:00 00:00:00 Renate [id number] Ortho pe dic Sports Medicin e 2022-02-10 2022-02-10 Outpatient FOG_Burke_R AOSM AOSM [id number] Karyn 00:00:00 00:00:00 Renate [id number] Ortho pe dic Sports Medicin e 2022-02-01 2022-02-01 Outpatient FOG_Burke_R AOSM AOSM [id number] Karyn 00:00:00 00:00:00 Renate [id number] Ortho pe dic Sports Medicin e 2022-02-01 2022-02-01 Lindy H [place]OSM [place] - [place] [id number] Karyn 00:00:00 00:00:00 Izabel Rivera PA: [address] FOG_Ofc dic [facility], [address] [place] [address] , Ph. [phone] 2021-12-31 2021-12-31 Outpatient FOG_Burke_R AOSM AOSM [id number] Karyn 00:00:00 00:00:00 Renate [id number] Ortho pe dic Sports Medicin e 2021-12-21 2021-12-21 Outpatient FOG_Burke_R AOSM AOSM [id number] Karyn 00:00:00 00:00:00 Renate [id number] Ortho pe dic Sports Medicin e 2021-12-21 2021-12-21 Sha Mason [place] [place] - [place] [id number] Karyn 00:00:00 00:00:00 MD Jean-Pierre: Izabel Bui - Orthope [address] [address] [facility] [place] [employer] [facility] [address], Medic[place], [place] [address] , Ph. [phone] 2021-12-17 2021-12-17 Outpatient FOG_Paolae_R AOSM AOSM [id number] Karyn 00:00:00 00:00:00 Renate [id number] Ortho pe dic Sports Medicin e 2020-09-18 2020-09-18 Outpatient Loretta BROWN [facility] [id number] [place] 04:11:00 07:13:00 MILES [facility] Results Test Description Test Time Test Comments Results Result [facility] e Comments - USG NDL 2023-01-04 PLACEMENT 14:22:00 (Bxg/Asp) [facility] : 1955 Sex: F Patient Name: WOO SANDERS Unit No: [id number] EXAMS: CPT CODE: [id number] USG NDL PLACEMENT (Bxg/Asp) 03588 Ultrasound guided left hip aspiration/steroid injection FINDINGS: After informed consent was obtained a 22-gauge needle was inserted into left hip under ultrasound guidance using sterile technique. 2 cc fluid was aspirated. This was sent to the lab for analysis. Subsequently, 2 cc of Kenalog was injected into the joint. The patient tolerated the procedure well. IMPRESSION: Ultrasound-guided left hip aspiration/steroid injection at 1422 Reported and signed by: Patrice Gifford M.D. CC: Sha Morejon MD Technologist: ELISE LITTLEJOHN, ARLEYT, RDMS Transcribed D/ (1421) [facility] NAME: WOO SANDERS [address] [facility] PHYS: Sha Hernandez MD : 1955 AGE: 67 SEX: F [place] [address] LOC: Y.RAD PHONE #: [phone] EXAM DATE: 01/03/2023 STATUS: DEP CLI FAX #: [phone] RAD #: D/C DT PAGE 1 Signed Report Patient Name: WOO SANDERS Unit No: [id number] EXAMS: CPT CODE: [id number] USG NDL PLACEMENT (Bxg/Asp) 41014 (Continued) Orig Print D/T: S: 01/04/2023 (1424) [facility] NAME: WOO SANDERS [address] [place] [address] PHYS: Sha Hernandez MD : 1955 AGE: 67 SEX: F [place] [address] LOC: Y.RAD PHONE #: [phone] EXAM DATE: 01/03/2023 STATUS: DEP CLI FAX #: [phone] RAD #: D/C DT PAGE 2 Signed Report SYNOVIAL FLD CELL CT/DIFF 2023-01-03 18:53:00 Test Item Value Reference Range Interpretation Comme nts SYNOVIAL FLD COLOR (test YELLOW LT. YELLOW code = COLSY) SYNOVIAL FLD APPEARANCE SLT HAZY CLEAR (test code = APPSY) SYNOVIAL FLD VOLUME (test 0.5 mL code = VOLSY) SYNOVIAL FLD WBC (test 283.000 /MM3 0-200 H code = WBCSY) SYNOVIAL FLD RBC (test 1000.000 /mm3 0-2 H NOTE : An automated method is now code = RBCSY) being used to determinesynovial fluid WBC and R BC counts. The differential wi llstill be performed manua lly. SYNOVIAL FLD POLY (test 5 % 0-25 N code = POLYSY) SYNOVIAL FLD LYMPHOCYTE 27 % 0-78 N (test code = LYMPHSY) SYNOVIAL FLD MONOCYTE 55 % 0-71 N (test code = MONOSY) SYNOVIAL FLD LINING CELLS 13 % (test code = LINSY) SPECIMEN COMMENT: LEFT HIP ASPIRATION DONE BY DEYA DONG
[2023-01-07 22:11] LABS: Absolute Lymphocytes (CBC) 2.7 K/uL (0.7-4.9); Lymphocytes % 29.6 % (15.3-44.8); MCV 87.1 fL (80-100); MPV 8.4 fL (7.6-11.3); Platelets 278 thou/uL (152-406); RBC Red Blood Cell Count 4.82 M/uL (3.86-4.86)
[2023-01-07] MEDS ORDERED: METOCLOPRAMIDE 10 MG/2mL INJ ONE (22:16)
[2023-01-07] MEDS ORDERED: MORPHINE 4 MG/ML SYR ONE (22:17)
[2023-01-07] MEDS ORDERED: ONDANSETRON 4 MG/2 ML VIAL ONE (22:17)
[2023-01-07] MEDS ORDERED: KETOROLAC 30 MG/ML INJ ONE (22:17)
[2023-01-07] MEDS ORDERED: NA CHLORIDE 0.9% 1,000 ML ONE (22:17)
[2023-01-07 22:21] LABS: Protime INR 0.97
--- NOTE | 2023-01-07 22:21 | RAD REPORT ---
EXAM DESCRIPTION: RAD - Chest Single View - 01/07/2023 10:01 pm CLINICAL HISTORY: CHEST PAIN Chest pain. COMPARISON: Chest Pa And Lat (2 Views) dated 03/23/2022; Chest Single View dated 02/05/2019; Chest Sin gle View dated 10/16/2017; CHEST PA AND LAT 2 VIEW dated 03/07/2012 FINDINGS: Portable technique limits examination quality. The lungs are emphysematous but grossly clear. The heart is normal in size. No displaced fractures. IMPRESSION: Mild COPD.
[2023-01-07 22:30] LABS: Albumin 3.8 g/dL (3.4-5.0); Bilirubin Direct 0.1 mg/dL (0-0.2); Bilirubin Indirect, Calculated 0.4 mg/dL (0.2-0.8); Bilirubin Total 0.5 mg/dL (0.2-1.0); Magnesium 2.2 mg/dL (1.6-2.4); Potassium 3.8 mEq/L (3.5-5.1); Protein, Total 7.2 g/dL (6.4-8.2); Troponin High Sensitivity 5.7 pg/mL (<58.9)
--- NOTE | 2023-01-07 22:30 | RAD REPORT ---
EXAM DESCRIPTION: US - Abdomen Exam Limited - 01/07/2023 10:21 pm CLINICAL HISTORY: ABD PAIN COMPARISON: No comparisons FINDINGS: The gallbladder demonstrates no gallstones. A small volume of sludge is suspected. No enma cholecystic fluid or gallbladder wall thickening. The common bile duct is normal measuring 6 mm. The liver demonstrates no findings of intrahepatic biliary dilatation. IMPRESSION: No cholelithiasis or gallbladder wall thickening. A small volume of sludge is noted in t he gallbladder. Biliary tree is within normal caliber.
--- NOTE | 2023-01-08 00:15 | ER ---
Nurse's Notes [facility] [place] Name: Wandy Tucker Age: 67 yrs Sex: Female : 1955 Arrival Date: 01/07/2023 Time: 21:15 Bed 20 Private MD: Diagnosis: Chest pain, unspecified;Upper abdominal pain, unspecified;Atypical chest pain Presentation: 01/07 21:21 Chief complaint: Patient states: Chest pain onset a couple hours ago. pt states that cm10 the pain radiates to both sides and under her breasts. 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 Coronavirus screen: Vaccine status: Patient reports receiving the 2nd dose of the covid vaccine. Client denies travel out of the [place] in the last 14 days. Ebola Screen: Patient denies travel to an Ebola-affected area in the 21 days before illness onset. No symptoms or risks identified at this time. Initial Sepsis Screen: Does the patient meet any 2 criteria? No. Patient's initial sepsis screen is negative. Does the patient have a suspected source of infection? No. Patient's initial sepsis screen is negative. Risk Assessment: Do you want to hurt yourself or someone else? Patient reports no desire to harm self or others. Onset of symptoms was January 07, 2023. 21:21 Method Of Arrival: Ambulatory cm10 21:21 Acuity: JAVED 2 cm10 Triage Assessment: 21:30 General: Appears uncomfortable, obese, Behavior is cooperative, appropriate for age, bp anxious. Historical: - Allergies: 21:21 No Known Allergies; cm10 - PMHx: 21:21 Depression; High Cholesterol; cm10 - PSHx: 21:23 Appendectomy; cm10 - Immunization history:: Adult Immunizations unknown. - Social history:: Smoking status: Patient denies any tobacco usage or history of. - Family history:: not pertinent. Screenin:30 [facility] ED Fall Risk Assessment (Adult) History of falling in the last 3 months, ha1 including since admission No falls in past 3 months (0 pts) Confusion or Disorientation No (0 pts) Intoxicated or Sedated No (0 pts) Impaired Gait No (0 pts) Mobility Assist Device Used No (0 pt) Altered Elimination No (0 pt) Score/Fall Risk Level 0 - 2 = Low Risk Oriented to surroundings, Maintained a safe environment, Educated pt \T\ family on fall prevention, incl call for assistance when getting out of bed. Abuse screen: Denies threats or abuse. Denies injuries from another. Nutritional screening: No deficits noted. Tuberculosis screening: No symptoms or risk factors identified. Assessment: 22:30 General: Appears comfortable, Behavior is calm, cooperative. Pain: Complains of pain in ha1 abdomen Pain does not radiate. Pain currently is 1 out of 10 on a pain scale. Quality of pain is described as crampy. Neuro: Level of Consciousness is awake, alert, obeys commands, Oriented to person, place, time, situation. Cardiovascular: Capillary refill < 3 seconds Patient's skin is warm and dry. Respiratory: Airway is patent Respiratory effort is even, unlabored, Respiratory pattern is regular, symmetrical. GI: Abdomen is round non-distended, Bowel sounds present X 4 quads. Abd is soft and non tender X 4 quads. Reports lower abdominal pain. : No signs and/or symptoms were reported regarding the genitourinary system. Derm: Skin is pink, warm \T\ dry. Musculoskeletal: Circulation, motion, and sensation intact. Range of motion: intact in all extremities. 23:50 Reassessment: Patient appears in no apparent distress at this time. Patient is alert, bp oriented x 3, equal unlabored respirations, skin warm/dry/pink. 01/08 00:33 Reassessment: ATTEMPTED TO GIVE REPORT. ha1 00:50 Reassessment: Patient and/or family updated on plan of care and expected duration. Pain ha1 level reassessed. Patient is alert, oriented x 3, equal unlabored respirations, skin warm/dry/pink. 00:55 Reassessment: ATTEMPTED TO GIVE REPORT. ha1 01:25 Reassessment: REPORT GIVEN TO DIPTI SÁNCHEZ. ha1 Vital Signs: 01/07 21:21 BP 169 / 89; Pulse 69; Resp 18; Temp 97.3; Pulse Ox 100% on R/A; Weight 111.58 kg; cm10 Height 5 ft. 5 in. ; Pain 11/22; 23:07 BP 129 / 65; Pulse 71; Resp 17 S; Pulse Ox 96% on R/A; ha1 23:49 BP 134 / 69; Pulse 72; Resp 16; Pulse Ox 95% ; bp 01/08 00:34 BP 148 / 75; Pulse 67; Resp 17 S; Pulse Ox 99% on R/A; ha1 01:30 BP 145 / 73; Pulse 65; Resp 18 S; Pulse Ox 96% on R/A; ha1 01/07 21:21 Body Mass Index 40.94 (111.58 kg, 165.1 cm) cm10 01/07 21:21 Pain Scale: Adult cm10 ED Course: 01/07 21:17 Patient arrived in ED. [id number] 21:22 Frankie Emanuel MD is Attending Physician. sp4 21:23 Triage completed. cm10 21:23 Arm band placed on Patient placed in an exam room, on a stretcher. cm10 21:23 Patient has correct armband on for positive identification. Placed in gown. Bed in low ha1 position. Call light in reach. Side rails up X 1. Adult w/ patient. 21:30 Inserted saline lock: 22 gauge in right forearm, using aseptic technique. Blood bp collected. 21:42 Shaka Cao, DIPTI is Primary Nurse. bp 22:03 XRAY Chest (1 view) In Process Unspecified. EDMS 22:23 US Abdomen Limited In Process Unspecified. EDMS 22:59 CT Chest, Abdomen, Pelvis - W/Contrast In Process Unspecified. EDMS 01/08 00:13 Boo David MD is Hospitalizing Provider. sp4 01:57 No provider procedures requiring assistance completed. Patient admitted, IV remains in ha1 place. 01:58 Provided Education on: NEED FOR ADMIT . ha1 Administered Medications: 01/07 22:12 Drug: morphine IVP or IV 4 mg IVP once over 4 mins Route: IVP; Infused Over: 4 mins; bp Site: right forearm; 23:00 Follow up: Response: No adverse reaction; Marked relief of symptoms; Pain is decreased; ha1 RASS: Alert and Calm (0) 22:12 Drug: Ketorolac IVP 30 mg IVP once Route: IVP; Site: right forearm; bp 23:00 Follow up: Response: No adverse reaction; Marked relief of symptoms; Pain is decreased ha1 22:12 Drug: metoCLOPramide IVP 10 mg IVP once; over 1 to 2 minutes Route: IVP; Site: right bp forearm; 23:00 Follow up: Response: No adverse reaction; Marked relief of symptoms ha1 22:13 Drug: Ondansetron IVP 8 mg IVP once; over 2 minutes Route: IVP; Site: right forearm; bp 23:00 Follow up: Response: No adverse reaction; Marked relief of symptoms ha1 22:13 Drug: NS 0.9% IV 1000 ml IV at 125 ml/hr continuous Route: IV; Rate: 125 ml/hr; Site: bp right forearm; 23:56 Follow up: Response: No adverse reaction; Marked relief of symptoms ha1 01/08 00:31 Drug: Aspirin PO Chewable Tablet 324 mg PO once; 81 mg tablets x 4 Route: PO; ha1 00:43 Follow up: Response: No adverse reaction ha1 Medication: 01/07 23:14 VIS not applicable for this client. ha1 Outcome: 01/08 00:14 Decision to Hospitalize by Provider. sp4 01:57 Admitted to Tele accompanied by tech, via stretcher, room 405, with chart, Report ha1 called to DIPTI SÁNCHEZ 01:57 Condition: stable 01:57 Discharge instructions given to patient, family, Instructed on the need for admit, Demonstrated understanding of instructions, 02:01 Patient left the ED. ha1 Signatures: Dispatcher [employer] Shaka Epstein RN RN Amparo Medrano [email or web address] Ale Ann RN RN ha1 Frankie Emanuel MD MD sp4 Tami Cao RN RN cm10
--- NOTE | 2023-01-08 00:15 | EDPHYS ---
Physician Documentation [facility] Name: Wandy Tucker Age: 67 yrs Sex: Female : 1955 Arrival Date: 01/07/2023 Time: 21:15 Bed 20 Private MD: ED Physician Frankie Emanuel HPI: 01/07 21:22 This 67 yrs old Female presents to ER via Unassigned with complaints of sp4 Abdominal Pain, Chest Pain. 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 Patient vomited in triage. Patient reported associated vomiting and shortness of breath. Patient has history of appendectomy, partial hysterectomy, 3 C-sections no history of gallbladder problems no history of cardiac emergencies. Denied tobacco alcohol drug abuse. . Historical: - Allergies: 21:21 No Known Allergies; cm10 - PMHx: 21:21 Depression; High Cholesterol; cm10 - PSHx: 21:23 Appendectomy; cm10 - Immunization history:: Adult Immunizations unknown. - Social history:: Smoking status: Patient denies any tobacco usage or history of. - Family history:: not pertinent. ROS: 21:53 Constitutional: Negative for fever, chills, and weight loss, Cardiovascular: Positive sp4 for lower chest pain positive nausea vomiting Abdomen/GI: Positive for abdominal pain positive vomiting also positive nausea 21:53 All other systems are negative, Exam: 21:53 Constitutional: This is a well developed, well nourished patient who is awake, alert, sp4 positive for acute moderate discomfort, restless Head/Face: Normocephalic, atraumatic. Eyes: Pupils equal round and reactive to light, extra-ocular motions intact. Lids and lashes normal. Conjunctiva and sclera are not injected. Cornea within normal limits. Periorbital areas with no swelling, redness, or edema. ENT: Nares patent. No nasal discharge, no septal abnormalities noted. Tympanic membranes are normal and external auditory canals are clear. Oropharynx with no redness, swelling, or masses, exudates, or evidence of obstruction, uvula midline. Mucous membranes moist. Neck: Trachea midline, no thyromegaly or masses palpated, and no cervical lymphadenopathy. Supple, full range of motion without nuchal rigidity, or vertebral point tenderness. Chest/axilla: Normal chest wall appearance and motion. Nontender with no deformity. No lesions are appreciated. Cardiovascular: Regular rate and rhythm with a normal S1 and S2. No gallops, murmurs, or rubs. Normal PMI, no JVD. No pulse deficits. Respiratory: Lungs have equal breath sounds bilaterally, clear to auscultation and percussion. No rales, rhonchi or wheezes noted. No increased work of breathing, no retractions or nasal flaring. Abdomen/GI: Soft, with normal bowel sounds. No distension or tympany. No guarding or rebound. Back in the right upper quadrant tenderness, positive Casillas sign Back: No spinal tenderness. No costovertebral tenderness. Skin: Warm, dry with normal turgor. Normal color with no rashes, no lesions, and no evidence of cellulitis. MS/ Extremity: Pulses equal, no cyanosis. Neurovascular intact. Full, normal range of motion. Neuro: Awake and alert, GCS 15, oriented to person, place, time, and situation. Cranial nerves II-XII grossly intact. Motor strength 5/5 in all extremities. Sensory grossly intact. Psych: Awake, alert, with orientation to person, place and time. Behavior, mood, and affect are within normal limits 21:53 ECG was reviewed by the Attending Physician. EKG time 2127, there is normal sinus sp4 rhythm at the rate of 79, there is muscle tremor artifact, no ST elevation or depression, normal EKG Vital Signs: 21:21 BP 169 / 89; Pulse 69; Resp 18; Temp 97.3; Pulse Ox 100% on R/A; Weight 111.58 kg; cm10 Height 5 ft. 5 in. ; Pain 10/10; 23:07 BP 129 / 65; Pulse 71; Resp 17 S; Pulse Ox 96% on R/A; ha1 23:49 BP 134 / 69; Pulse 72; Resp 16; Pulse Ox 95% ; bp 01/08 00:34 BP 148 / 75; Pulse 67; Resp 17 S; Pulse Ox 99% on R/A; ha1 01:30 BP 145 / 73; Pulse 65; Resp 18 S; Pulse Ox 96% on R/A; ha1 01/07 21:21 Body Mass Index 40.94 (111.58 kg, 165.1 cm) cm10 01/07 21:21 Pain Scale: Adult cm10 MDM: 01/07 21:40 Patient medically screened. sp4 23:48 ED course: CT report - PROCEDURE: Contrast-enhanced images of the chest, abdomen and sp4 pelvis were performed utilizing 5 mm slice thickness at 5 mm interval reconstruction from the lung apices to the ischial tuberosities after the administration of IV contrast. In addition multiplanar reformats in the coronal and sagittal plane were obtained and reviewed. An individualized dose optimization technique, Automated Exposure Control, was utilized for the performed procedure. FINDINGS: CHEST: Lower neck/chest wall: Visualized thyroid gland and soft tissues are normal. No adenopathy. Lungs and airways: The lung parenchyma demonstrate to be clear. No evidence of airspace or interstitial process. No significant pulmonary nodules and/or masses identified. No focal areas of consolidation. Minimal dependent atelectatic changes lung bases. Airways: The trachea mainstem bronchus demonstrate to be unremarkable. Pleural: There are no pleural effusion. No evidence for pneumothorax. Hemidiaphragms are normally positioned. Mediastinum and lymph nodes: No significant mediastinal and/or hilar lymphadenopathy. The axillary regions demonstrate to be clear. Heart: Normal heart size. No pericardial effusion. There are minimal coronary artery calcifications. Thoracic aorta: The thoracic aorta demonstrate a presence of minimal intimal aortic arch ossification. Pulmonary arteries: The pulmonary arteries were not evaluated due to lack of IV contrast. Osseous structures and chest wall: The thoracic spine demonstrate to be within normal limits. No evidence for compression deformities and/or significant skeletal lesions. Minimal anterior spondylosis mid/lower thoracic spine ABDOMEN AND PELVIS: Liver: The liver demonstrated presence of decreased attenuation corresponding to mild fatty infiltration. Gallbladder: The gallbladder demonstrates presence of high density structure within the gallbladder neck corresponding to cholelithiasis. No significant inflammatory changes and/or biliary duct dilatation. Adrenal glands: The adrenal glands demonstrate to be normal. Pancreas: The pancreas demonstrate to be normal. Spleen: The spleen demonstrate to be within normal limits. Kidneys: The kidneys demonstrate normal uptake of contrast media. No evidence for nephrolithiasis and/or hydronephrosis. There is a mid/lower pole left renal cyst measuring 4.4 x 3.2 cm on image 69. GI: Grossly the unopacified stomach, small bowel and large bowel demonstrate to be within normal limits. There is a second portion duodenal diverticulum. No evidence for bowel dilatation and/or free air. The appendix was not visualized surgical clips/suture within the cecum/right lower quadrant correspond to priors appendectomy. The left-sided colon/sigmoid colon demonstrates presence of minimal diverticulosis. : The urinary bladder demonstrate to be unremarkable. Genitalia: The uterus is absent. There are no adnexal masses. Abdominal aorta: The aorta demonstrate demonstrate to be within normal limits. Retroperitoneum:There is no retroperitoneal lymphadenopathy. There is no evidence for ascites and/or abnormal fluid collections. Bones: The bony structures demonstrate to be within normal limits. Soft tissues: The rest of the soft tissue and bony structures are within normal limits. IMPRESSION: Minimal coronary artery calcifications. Cholelithiasis. Left Bosniak I benign renal cyst measuring 4.4 cm. No follow-up imaging is recommended. Minimal diverticulosis without evidence of acute diverticulitis. Status post hysterectomy. Mild fatty infiltration of the liver. Otherwise unremarkable CT scan of the chest, abdomen and pelvis with contrast. . 23:50 ED course: US - EXAM DESCRIPTION: US - Abdomen Exam Limited - 01/07/2023 10:21 pm sp4 CLINICAL HISTORY: ABD PAIN COMPARISON: No comparisons FINDINGS: The gallbladder demonstrates no gallstones. A small volume of sludge is suspected. No pericholecystic fluid or gallbladder wall thickening. The common bile duct is normal measuring 6 mm. The liver demonstrates no findings of intrahepatic biliary dilatation. IMPRESSION: No cholelithiasis or gallbladder wall thickening. A small volume of sludge is noted in the gallbladder. Biliary tree is within normal caliber. . ED course: Chest X ray - EXAM DESCRIPTION: RAD - Chest Single View - 01/07/2023 10:01 pm CLINICAL HISTORY: CHEST PAIN Chest pain. COMPARISON: Chest Pa And Lat (2 Views) dated 03/23/2022; Chest Single View dated 02/05/2019; Chest Single View dated 10/16/2017; CHEST PA AND LAT 2 VIEW dated 03/07/2012 FINDINGS: Portable technique limits examination quality. The lungs are emphysematous but grossly clear. The heart is normal in size. No displaced fractures. IMPRESSION: Mild COPD. . 01/08 00:11 HEART Score: History: Moderately Suspicious (1), ECG: Normal (0), Age: > or = 65 years sp4 (2), Risk Factors: 1 or 2 risk factors (1), Troponin: < or = 1 x Normal Limit (0), Total Score = 4. The patient was given aspirin in the Emergency Department. Data reviewed: vital signs, nurses notes, old medical records, lab test result(s), EKG, radiologic studies, CT scan, plain films, ultrasound. 00:12 ED course: CT has ruled out acute intra-abdominal emergencies, and ultrasound has ruled sp4 out acute cholecystitis. Will admit for chest pain rule out ACS. . 01/07 21:22 Order name: Basic Metabolic Panel; Complete Time: 23:36 4 01/07 21:22 Order name: CBC with Diff; Complete Time: 23:36 4 01/07 21:22 Order name: LFT's; Complete Time: 23:36 [facility] 01/07 21:22 Order name: Magnesium; Complete Time: 23:36 [facility] 01/07 21:22 Order name: NT PRO-BNP; Complete Time: 23:36 [facility] 01/07 21:22 Order name: PT-INR; Complete Time: 23:36 [facility] 01/07 21:22 Order name: Troponin HS; Complete Time: 23:36 [facility] 01/07 21:24 Order name: Lipase; Complete Time: 23:36 4 01/07 23:53 Order name: Troponin High Sensitivity [facility] 01/07 21:22 Order name: XRAY Chest (1 view); Complete Time: 23:36 4 01/07 21:23 Order name: CT Chest, Abdomen, Pelvis - W/Contrast [facility] 01/07 21:53 Order name: US Abdomen Limited; Complete Time: 23:36 [facility] 01/07 21:22 Order name: EKG; Complete Time: 21:23 [facility] 01/07 21:22 Order name: Cardiac monitoring; Complete Time: 21:56 [facility] 01/07 21:22 Order name: EKG - Nurse/Tech; Complete Time: 21:56 [facility] 01/07 21:22 Order name: IV Saline Lock; Complete Time: :56 [facility] 01/07 21:22 Order name: Labs collected and sent; Complete Time: 21:56 [facility] 01/07 21:22 Order name: O2 Per Protocol; Complete Time: 21:56 [facility] 01/07 21:22 Order name: O2 Sat Monitoring; Complete Time: :56 [facility] EC/25 21:53 Rate is 79 beats/min. Rhythm is regular, Normal Sinus Rhythm. QRS [place] is Normal. [place] sp4 interval is normal. QRS interval is normal. QT interval is normal. No Q waves. T waves are Normal. No ST changes noted. Clinical impression: Normal ECG. Interpreted by me. Reviewed by me. Administered Medications: 22:12 Drug: morphine IVP or IV 4 mg IVP once over 4 mins Route: IVP; Infused Over: 4 mins; bp Site: right forearm; 23:00 Follow up: Response: No adverse reaction; Marked relief of symptoms; Pain is decreased; ha1 RASS: Alert and Calm (0) 22:12 Drug: Ketorolac IVP 30 mg IVP once Route: IVP; Site: right forearm; bp 23:00 Follow up: Response: No adverse reaction; Marked relief of symptoms; Pain is decreased ha1 22:12 Drug: metoCLOPramide IVP 10 mg IVP once; over 1 to 2 minutes Route: IVP; Site: right bp forearm; 23:00 Follow up: Response: No adverse reaction; Marked relief of symptoms ha1 22:13 Drug: Ondansetron IVP 8 mg IVP once; over 2 minutes Route: IVP; Site: right forearm; bp 23:00 Follow up: Response: No adverse reaction; Marked relief of symptoms ha1 22:13 Drug: NS 0.9% IV 1000 ml IV at 125 ml/hr continuous Route: IV; Rate: 125 ml/hr; Site: bp right forearm; 23:56 Follow up: Response: No adverse reaction; Marked relief of symptoms ha1 01/08 00:31 Drug: Aspirin PO Chewable Tablet 324 mg PO once; 81 mg tablets x 4 Route: PO; ha1 00:43 Follow up: Response: No adverse reaction ha1 Disposition Summary: 01/08/23 00:14 Hospitalization Ordered Notes: Hospitalization Status: Observation sp4 Provider: Boo David sp4 [facility] sp4 Condition: Stable sp4 Problem: new sp4 Symptoms: have improved sp4 Bed/Room Type: Standard sp4 Room Assignment: 405(01/08/23 00:17) rv1 Diagnosis - Chest pain, unspecified sp4 - Upper abdominal pain, unspecified sp4 - Atypical chest pain sp4 Forms: - Medication Reconciliation Form sp4 - SBAR form sp4 - Leadership Thank You Letter sp4 Signatures: Dispatcher [employer] Shaka Epstein, RN RN bp Ale Ann RN RN ha1 Kallie Pierre rv1 Frankie Emanuel MD MD sp4 Tami Cao RN RN cm10 Corrections: (The following items were deleted from the chart) 00:17 00:14 sp4 rv1
--- NOTE | 2023-01-08 00:18 | P.HP ---
Certification for Inpatient Patient admitted to: Observation With expected LOS: <2 Midnights Patient will require the following post-hospital care: None Practitioner: I am a practitioner with admitting privileges, knowledge of patient current condition, hospital course, and medical plan of care. Services: Services provided to patient in accordance with Admission requirements found in Title 42 Section 412.3 of the Code of Federal Regulations Patient History Date of Service: 01/08/23 Reason for admission: Chest pain History of Present Illness: 67-year-old female female with a past medical history of depression, hyperlipidemia, presents to the emergency room with abdominal pain, chest pain. She reports symptoms started after eating reports associated nausea vomiting x1. She reports epigastric pain radiates to the right upper quadrant, she denies chest pain radiating to her neck or left arm, denies history of ID, hypertension. She reports history of stress test. No reported fever, cough, edema, dizziness, diarrhea, dysuria. Plan to admit for chest pain rule out ID, laboratory evaluation acute kidney injury BUN 23 creatinine 1.23, unknown baseline elevated blood glucose 168 elevated BNP 459 troponin normal at 5.7 lipase normal at 34 AST ALT normal 21, 24, CBC unremarkableEKG s normal sinus rhythm at the rate of 79, there is muscle tremor artifact, no ST elevation or depression, normal EKG. HEART Score: History: Moderately Suspicious (1), ECG: Normal (0), Age: > or = 65 years (2), Risk Factors: 1 or 2 risk factors (1), T roponin: < or = 1 x Normal Limit (0), back pain total Score = 4. Abdominal ultrasoundIMPRESSION: No cholelithiasis or gallbladder wall thickening. A small volume of sludge is noted in the gallbladder. Biliary tree is within normal caliber Chest x-ray IMPRESSION: Mild COPD. Allergies No Known Allergies Allergy (Verified 08/21/20 10:05) Home Medications: Paroxetine HCl [Paxil] 20 mg PO BEDTIME 10/16/17 Cholecalciferol (Vitamin D3) [Vitamin D3] 2 cap PO DAILY 08/21/20 Cimetidine 200 mg PO DAILY 08/21/20 Cyanocobalamin [Vitamin B-12] 2 tab PO DAILY 08/21/20 Lovastatin 20 mg PO BEDTIME 08/21/20 Multivit-Min/FA/Lycopen/Lutein [Centrum Silver Tablet] 1 each PO DAILY 08/21/20 - Past Medical/Surgical History Diabetic: No -: depression -: Hyperlipidemia -: C section -: hysterectomy - Family History Mother -: Diabetes Father -: Hypertension, Diabetes - Social History Smoking Status: Never smoker Alcohol use: No CD- Drugs: No Caffeine use: Yes Place of Residence: Home Review of Systems 10-point ROS is otherwise unremarkable (Unless listed in HPI) Physical Examination - Physical Exam General: Alert, In no apparent distress, Oriented x3 HEENT: Atraumatic, Normocephalic, PERRLA Neck: Supple, 2+ carotid pulse no bruit, JVD not distended Respiratory: Clear to auscultation bilaterally, Normal air movement Cardiovascular: No edema, Normal pulses Capillary refill: <2 Seconds Gastrointestinal: Tenderness (Epigastric, right upper quadrant tenderness) Musculoskeletal: No clubbing, No swelling Integumentary: No rashes, No breakdown Neurological: Normal speech, Normal strength at 5/5 x4 extr - Studies Laboratory Data (last 24 hrs) 01/07/23 01/07/23 01/07/23 21:58 21:58 21:58 WBC 8.90 Hgb 14.4 Hct 42.0 Plt Count 278 PT 10.7 INR 0.97 Sodium Potassium BUN Creatinine Glucose Magnesium Total Bilirubin AST ALT Alkaline Phosphatase Lipase 34 01/07/23 21:58 WBC Hgb Hct Plt Count PT INR Sodium 138 Potassium 3.8 BUN 23 H Creatinine 1.23 H Glucose 168 H Magnesium 2.2 Total Bilirubin 0.5 AST 21 ALT 24 Alkaline Phosphatase 59 Lipase Assessment and Plan - Plan Assessment and plan Chest pain rule out ID Telemetry, trend troponins, lipid panel in the a.m., repeat EKG in the a.m. Aspirin, as needed antihypertensives, as needed analgesics, as needed antiemetics BNP 459 troponin normal at 5.7, CBC unremarkable EKG s normal sinus rhythm at the rate of 79, there is muscle tremor artifact, no ST elevation or depression, normal EKG. HEART Score: History: Moderately Suspicious (1), ECG: Normal (0), Age: > or = 65 years (2), Risk Factors: 1 or 2 risk factors (1), Troponin: < or = 1 x Normal Li svetlana (0), back pain total Score = 4. Abdominal pain Nausea vomiting Abdominal ultrasound IMPRESSION: No cholelithiasis or gallbladder wall thickening. A small volume of sludge is noted in the gallbladder. Biliary tree is within normal caliber Chest x-ray IMPRESSION: Mild COPD. lipase normal at 34 AST ALT normal 21, 24, Acute kidney injury unknown baseline Trend kidney function acute kidney injury BUN 23 creatinine 1.23, unknown baseline Gentle IV fluids depression hyperlipidemia Resume appropriate home meds DVT prophylaxis n.p.o. after midnight Full code Discharge Plan: Home Plan to discharge in: 24 Hours - Advance Directives Does patient have a Living Will: No Does patient have a Durable POA for Healthcare: No - Code Status/Comfort Care Code Status: Full Code Physician Review: Patient Assessed, Agree with Above Assessment and Plan Critical Care: No Time Spent Managing Pts Care (In Minutes): 50
[2023-01-08] MEDS ORDERED: ASPIRIN 81 MG CHEWABLE TABLET ONE (00:42)
[2023-01-08 02:15] VITALS: BMI 40.9
[2023-01-08] MEDS ORDERED: ACETAMINOPHEN 500 MG TAB PO PRN (02:28)
[2023-01-08] MEDS: NA CHLORIDE 0.9% 1,000 ML IV SCH ×3 (02:28→15:48)
[2023-01-08] MEDS: HEPARIN 5000 UNIT/ML 1 ML VIAL SQ SCH ×3 (06:12→16:37)
[2023-01-08] MEDS ORDERED: INFLUENZA VACCINE (for 6+ mo) 0.5 ML DOSE IMVAC ONE (08:00)
[2023-01-08] MEDS: ASPIRIN EC 81 MG TAB PO SCH (08:06)
[2023-01-08] MEDS ORDERED: POTASSIUM CL SA 10 MEQ TAB PO ONE (09:00)
[2023-01-08] MEDS ORDERED: REGADENOSON 0.4 MG/5 ML SYR IV ONE (09:30)
[2023-01-08] MEDS: MORPHINE 4 MG/ML SYR IV PRN ×2 (18:15→23:45)
[2023-01-08] MEDS ORDERED: ATORVASTATIN 20 MG TAB PO SCH (21:00)
[2023-01-09] MEDS ORDERED: HYDRALAZINE HCL 20 MG/ML VIAL IV PRN (00:09)
[2023-01-09] MEDS ORDERED: MAGNES/ALUMIN/SIMET 30ML UCUP PO PRN (00:39)
[2023-01-09] MEDS ORDERED: HYDROCODONE/APAP 10/325 TAB PO PRN (00:40)
[2023-01-09] MEDS: HEPARIN 5000 UNIT/ML 1 ML VIAL SQ SCH ×3 (01:05→16:09)
[2023-01-09] MEDS: ONDANSETRON 4 MG/2 ML VIAL IV PRN ×4 (02:25→17:52)
[2023-01-09] MEDS: MORPHINE 4 MG/ML SYR IV PRN ×3 (04:02→17:51)
[2023-01-09 07:22] LABS: Absolute Lymphocytes (CBC) 1.5 K/uL (0.7-4.9); Hematocrit 40.5 % (36.0-45.0); Lymphocytes % 9.7 % (15.3-44.8); MCV 88.3 fL (80-100); MPV 8.3 fL (7.6-11.3); Platelets 256 thou/uL (152-406); RBC Red Blood Cell Count 4.59 M/uL (3.86-4.86)
[2023-01-09] MEDS ORDERED: HYDROMORPHONE HCL 0.5 MG/0.5 ML INJ IV ONE (09:00)
[2023-01-09] MEDS: ASPIRIN EC 81 MG TAB PO SCH (09:00)
[2023-01-09] MEDS: CYANOCOBALAMIN 1,000 MCG TAB PO SCH (09:00)
[2023-01-09] MEDS: FAMOTIDINE 20 MG TAB PO SCH (09:00)
[2023-01-09] MEDS ORDERED: ONDANSETRON 4 MG/2 ML VIAL IV ONE ×2 (09:15→09:57)
--- NOTE | 2023-01-09 11:08 | RAD REPORT ---
EXAM DESCRIPTION: NM - Rest Stress Cardiac Imaging - 01/09/2023 10:18 am CLINICAL HISTORY: CP Chest pain. COMPARISON: REST STRESS CARDIAC dated 12/24/2010 TECHNIQUE: The patient was administered approximately 10mCi of Tc 99m Sestamibi prior to resting SPE CT imaging of the heart. The patient was then administered approximately 30 mCi of Tc 99m Sestamibi f ollowing exercise or pharmacologic stress. Multiplanar SPECT images were reviewed. FINDINGS: No stress induced ischemic defect is seen to suggest stress induced ischemia. No fixed def ect is seen to suggest hibernating myocardium or scarred myocardium. The end diastolic volume is 73 ml, the end systolic volume is 14 ml, and the ejection fraction is 81 %. IMPRESSION: No stress induced ischemia.
--- NOTE | 2023-01-09 13:38 | RAD REPORT ---
EXAM DESCRIPTION: CT - Chest Abdomen Pelvis W Cont - 01/08/2023 6:37 am CLINICAL HISTORY: 67 years, Female, CHEST PAIN COMPARISON: None TECHNIQUE: Contrast-enhanced images of the chest, abdomen and pelvis were performed utilizing 5 mm s lice thickness at 5 mm interval reconstruction from the lung apices to the ischial tuberosities after the administration of IV contrast. In addition multiplanar reformats in the coronal and sagittal plane were obtained and reviewed. An individualized dose optimization technique, Automated Exposure Control, was utilized for the perfo rmed procedure. FINDINGS: CHEST: Lower neck/chest wall: Visualized thyroid gland and soft tissues are normal. No j luis nopathy. Lungs and airways: The lung parenchyma demonstrate to be clear. No evidence of airspace or interstiti al process. No significant pulmonary nodules and/or masses identified. No focal areas of consolidatio n. Minimal dependent atelectatic changes lung bases. Airways: The trachea mainstem bronchus demonstrate to be unremarkable. Pleural: There are no pleural effusion. No evidence for pneumothorax. Hemidiaphragms are normally pos itioned. Mediastinum and lymph nodes: No significant mediastinal and/or hilar lymphadenopathy. The axillary re gions demonstrate to be clear. Heart: Normal heart size. No pericardial effusion. There are minimal coronary artery calcifications. Thoracic aorta: The thoracic aorta demonstrate a presence of minimal intimal aortic arch ossification . Pulmonary arteries: The pulmonary arteries were not evaluated due to lack of IV contrast. Osseous structures and chest wall: The thoracic spine demonstrate to be within normal limits. No evid ence for compression deformities and/or significant skeletal lesions. Minimal anterior spondylosis mi d/lower thoracic spine ABDOMEN AND PELVIS: Liver: The liver demonstrated presence of decreased attenuation corresponding to mild fatty infiltration. Gallbladder: The gallbladder demonstrates presence of high density structure within the gallbladder n alex corresponding to cholelithiasis. No significant inflammatory changes and/or biliary duct dilatati on. Adrenal glands: The adrenal glands demonstrate to be normal. Pancreas: The pancreas demonstrate to be normal. Spleen: The spleen demonstrate to be within normal limits. Kidneys: The kidneys demonstrate normal uptake of contrast media. No evidence for nephrolithiasis a nd/or hydronephrosis. There is a mid/lower pole left renal cyst measuring 4.4 x 3.2 cm on image 69. GI: Grossly the unopacified stomach, small bowel and large bowel demonstrate to be within normal limi ts. There is a second portion duodenal diverticulum. No evidence for bowel dilatation and/or free air . The appendix was not visualized surgical clips/suture within the cecum/right lower quadrant corresp ond to priors appendectomy. The left-sided colon/sigmoid colon demonstrates presence of minimal diver ticulosis. : The urinary bladder demonstrate to be unremarkable. Genitalia: The uterus is absent. There are no adnexal masses. Abdominal aorta: The aorta demonstrate demonstrate to be within normal limits. Retroperitoneum: There is no retroperitoneal lymphadenopathy. There is no evidence for ascites and/or abnormal fluid collections. Bones: The bony structures demonstrate to be within normal limits. Soft tissues: The rest of the soft tissue and bony structures are within normal limits. IMPRESSION: Minimal coronary artery calcifications. Cholelithiasis. Left Bosniak I benign renal cyst measuring 4.4 cm. No follow-up imaging is recommended. JACR 2017; 264-273, Management of the Incidental Renal Mass on CT, [employer] 2020; 814-848, B osniak Classification of Cystic Renal Masses, Version 2019. Minimal diverticulosis without evidence of acute diverticulitis. Status post hysterectomy. Mild fatty infiltration of the liver. Otherwise unremarkable CT scan of the chest, abdomen and pelvis with contrast. Electronically signed by: Parish Nagy MD 01/07/2023 11:24 PM SERVICES ENGINEER Due to temporary technical issues with the PACS/Fluency reporting system, reports are being signed by the in house radiologist without review as a courtesy to ensure prompt reporting. The interpreting r adiologist is fully responsible for the content of the report.
[2023-01-09] MEDS: HYDROCODONE/APAP 10/325 TAB PO PRN ×2 (15:21→21:25)
--- NOTE | 2023-01-09 16:45 | P.PN ---
Subjective Date of Service: 01/09/23 Chief Complaint: Chest pain Reports right upper quadrant pain, pain worse after eating, mild relief with IV analgesics. Review of Systems ROS per HP Physical Examination - Vital Signs Temperature: 99.1 F Blood Pressure: 164/68 Pulse: 87 Respirations: 16 Pulse Ox (%): 95 - Physical Exam General: Alert, In no apparent distress, Oriented x3 HEENT: Atraumatic, Normocephalic Neck: Supple, 2+ carotid pulse no bruit Respiratory: Clear to auscultation bilaterally, Normal air movement Cardiovascular: No edema, Normal pulses, Regular rate/rhythm Capillary refill: <2 Seconds Gastrointestinal: Normal bowel sounds, Tenderness (Right upper quadrant, epigastric) Musculoskeletal: No clubbing, No swelling Integumentary: No rashes, No breakdown Neurological: Normal speech, Normal strength at 5/5 x4 extr Assessment And Plan - Plan Assessment and plan Chest pain rule out MD Telemetry, trend troponins, lipid panel in the a.m., repeat EKG in the a.m. Aspirin, as needed antihypertensives, as needed analgesics, as needed antiemetics BNP 459 troponin normal at 5.7, CBC unremarkable EKG s normal sinus rhythm at the rate of 79, there is muscle tremor artifact, no ST elevation or depression, normal EKG. HEART Score: History: Moderately Suspicious (1), ECG: Normal (0), Age: > or = 65 years (2), Risk Factors: 1 or 2 risk factors (1), Troponin: < or = 1 x Normal Limit (0), back pain total Score = 4. Abdominal pain Nausea vomiting Abdominal ultrasound IMPRESSION: No cholelithiasis or gallbladder wall thickening. A small volume of sludge is noted in the gallbladder. Biliary tree is within normal caliber Chest x-ray IMPRESSION: Mild COPD. lipase normal at 34 AST ALT normal 21, 24, Acute kidney injury unknown baseline Trend kidney function acute kidney injury BUN 23 creatinine 1.23, unknown baseline Gentle IV fluids depression hyperlipidemia Resume appropriate home meds DVT prophylaxis n.p.o. after midnight Full code Discharge Plan: Home Plan to discharge in: 48 Hours - Code Status/Comfort Care Code Status: Full Code Physician Review: Patient Assessed, Agree with Above Assessment and Plan Critical Care: No Time Spent Managing PTS Care (In Minutes): 35
--- NOTE | 2023-01-09 16:52 | EKG ---
Test Date: 2023-01-07 Test Time: 21:28:45 Women'S Studies Professor: BETH MEASUREMENT RESULTS: Intervals: Rate: 79 SD: 164 QRSD: 76 QT: 386 QTc: 442 [place]: P: 67 SD: 164 QRS: 49 T: 54 INTERPRETIVE STATEMENTS: Normal sinus rhythm Normal ECG Compared to ECG 02/05/2019 11:05:18 No significant changes Electronically Signed On 01-09-23 16:51:42 CHILD DEVELOPMENT TEACHER by Kelechi Salazar
--- NOTE | 2023-01-09 19:37 | CON ---
Date of Consultation: 01/09/2023 Reason For Consultation: Chest pain. History Of Present Illness: 67-year-old female, history of dyslipidemia, depression, presented to [facility] emergency room with right upper quadrant pain, epigastric pain, nausea, and vomiting. I saw her in the office and her cardiac evaluation was negative in the recent past. She was admitted and cardiac enzymes have been negative. She had a stress test that was negative and her pain is in the right up per quadrant. Past Medical History: As outlined above in the HPI. Medications: Refer to reconciliation sheet for detailed list. Allergies: NO KNOWN DRUG ALLERGIES. Family History: No premature coronary artery disease or cancer. Social History: She does not smoke or drink. Does not use any drugs. Review of Systems: All systems reviewed and they were negative except as mentioned in the HPI. Physical Examination: Vital Signs: Reviewed. Head and Neck: Pupils are equal, reactive to light. Intact eye movements. No JVD. No cervical lym phadenopathy. Neck is supple. Thyroid is not enlarged. Lungs: Clear to auscultation bilaterally. No rhonchi, wheezing, or crackles. No accessory muscle u se. Heart: Regular rate and rhythm. No extra sounds. Abdomen: Soft, nontender. Bowel sounds positive. No organomegaly. No masses or hernia. No rigidi ty or rebound. Extremities: No edema, clubbing, or cyanosis. Intact pulses. Skin: No rash or nodule. Neurologic: Alert, awake, oriented x3. No acute focal deficits appreciated. Investigations: Cardiac enzymes x4 are negative. BUN 20, creatinine 1.27. Stress test was negative , and hemoglobin is 13.5. Assessment And Recommendations: 1.Chest pain. This is not cardiac. Her pain is more right upper quadrant and epigastric, likely ga llbladder disease. She had a stress test that was negative. No further cardiac workup is recommende d. I recommend further investigation of gallbladder. 2.Right upper quadrant abdominal pain with the positive Casillas sign and local tenderness. Likely, h er problem is pertinent to gallbladder. Recommend Surgery evaluation and from cardiac standpoint, e is at low cardiac risk for a cholecystectomy, if need be. 3.Dyslipidemia. Continue statin. Thank you for the consult. /ARIELL Voice ID: [id number] Report ID: [id number]
[2023-01-09] MEDS: TIZANIDINE 4 MG TABLET PO SCH (21:25)
[2023-01-09] MEDS: PARoxetine HCL 10 MG TAB PO SCH (21:25)
[2023-01-09] MEDS: ATORVASTATIN 10 MG TAB PO SCH (21:25)
[2023-01-10] MEDS: HEPARIN 5000 UNIT/ML 1 ML VIAL SQ SCH ×3 (00:32→17:00)
[2023-01-10] MEDS: HYDROCODONE/APAP 10/325 TAB PO PRN ×2 (06:48→21:37)
--- NOTE | 2023-01-10 07:26 | P.PN ---
Subjective Date of Service: 01/10/23 Chief Complaint: Chest pain Reports right upper quadrant pain, pain worse after eating, mild relief with IV analgesics. Review of Systems PER HPI Physical Examination - Vital Signs Temperature: 98.9 F Blood Pressure: 124/58 Pulse: 75 Respirations: 18 Pulse Ox (%): 98 - Physical Exam General: Alert, In no apparent distress, Oriented x3 HEENT: Atraumatic, Normocephalic Neck: Supple, 2+ carotid pulse no bruit Respiratory: Clear to auscultation bilaterally, Normal air movement Cardiovascular: No edema, Normal pulses, Regular rate/rhythm Capillary refill: <2 Seconds Gastrointestinal: Normal bowel sounds, Tenderness (RUQ) Musculoskeletal: No clubbing, No swelling Integumentary: No rashes, No breakdown Neurological: Normal speech, Normal strength at 5/5 x4 extr Assessment And Plan - Plan Assessment and plan Chest pain rule out NM Telemetry, trend troponins, lipid panel in the a.m., repeat EKG in the a.m. Aspirin, as needed antihypertensives, as needed analgesics, as needed antiemetics BNP 459 troponin normal at 5.7, CBC unremarkable EKG s normal sinus rhythm at the rate of 79, there is muscle tremor artifact, no ST elevation or depression, normal EKG. HEART Score: History: Moderately Suspicious (1), ECG: Normal (0), Age: > or = 65 years (2), Risk Factors: 1 or 2 risk factors (1), Troponin: < or = 1 x Normal Limit (0), back pain total Score = 4. Chest x-ray IMPRESSION: Mild COPD. lipase normal at 34 AST ALT normal 21, 24, Abdominal pain Nausea vomiting Acute cholecystitis and cholelithiasis Abdominal ultrasound IMPRESSION: No cholelithiasis or gallbladder wall thickening. A small volume of sludge is noted in the gallbladder. Biliary tree is within normal caliber 01/10 Surgery, GI consulted, Keep NPO overnight Laboratory Data: Significant for white count of 18.3 with a left shift. INR is 0.97, and chemistry shows started on Zosyn normal LFTs, total bilirubin is slightly elevated at 1.5. Lipase is within normal limits. Acute kidney injury unknown baseline Trend kidney function acute kidney injury BUN 23 creatinine 1.23, unknown baseline Gentle IV fluids depression hyperlipidemia Resume appropriate home meds DVT prophylaxis n.p.o. after midnight Full code Discharge Plan: Home Plan to discharge in: 48 Hours - Code Status/Comfort Care Code Status: Full Code Physician Review: Patient Assessed, Agree with Above Assessment and Plan Critical Care: No Time Spent Managing PTS Care (In Minutes): 35
--- NOTE | 2023-01-10 08:21 | TREADPHA ---
DX: CHEST PAIN Date of Study: 01/09/2023 Ht: 5' 5 " Wt: 246 lb 0 oz Consulting Physician: LEXII MEDICATIONS: NORCO, ASPIRIN, LIPITOR, HEPARIN, PAXIL, APRESOLINE HISTORY: ANXIETY, NON-SMOKER, DRINKS ALCOHOL OCCASIONALLY, NO DRUG USE PHYSICIAL EXAMINATION: RESTING B.P.: 160/80 RESTING H.R.: 78 RESTING EKG: NORMAL SINUS RHYTHM PROTOCOL: PHARMACOLOGIC EXERCISE TIME: 3:30 B.P. AT PEAK STRESS: 156/64 IMPRESSION: LEXISCAN INJECTED. CARDIOLITE INJECTED - SEE NUCLEAR MEDICINE REPORT. NO CHEST PAIN, NO VENTRICULAR TACHYCARDIA, SUPRAVENTRICULAR TACHYCARDIA, NO ARRHYTHMIAS. PATIENT FELT NAUSEA AND HAD A HEADACHE. ZOFRAN 4 mg INTRAVENOUS GIVEN - ADMINISTERED PER DR. SHULTZ ORDERS. NO ELECTROCARDIOGRAM CHANGES WITH LEXISCAN STRESS.
[2023-01-10] MEDS: ASPIRIN EC 81 MG TAB PO SCH (08:58)
[2023-01-10] MEDS: FAMOTIDINE 20 MG TAB PO SCH (08:58)
[2023-01-10] MEDS: CYANOCOBALAMIN 1,000 MCG TAB PO SCH (08:58)
[2023-01-10 10:06] LABS: Absolute Lymphocytes (CBC) 1.5 K/uL (0.7-4.9); Hematocrit 38.4 % (36.0-45.0); Lymphocytes % 8.2 % (15.3-44.8); MCV 88.1 fL (80-100); Platelets 262 thou/uL (152-406); RBC Red Blood Cell Count 4.35 M/uL (3.86-4.86)
[2023-01-10] MEDS: ONDANSETRON 4 MG/2 ML VIAL IV PRN (10:23)
[2023-01-10] MEDS: MORPHINE 4 MG/ML SYR IV PRN (10:23)
[2023-01-10 10:25] LABS: Albumin 2.9 g/dL (3.4-5.0); Bilirubin Total 1.5 mg/dL (0.2-1.0); Magnesium 2.4 mg/dL (1.6-2.4); Phosphorus 2.5 mg/dL (2.5-4.9); Potassium 4.6 mEq/L (3.5-5.1); Protein, Total 6.7 g/dL (6.4-8.2)
--- NOTE | 2023-01-10 11:22 | CON ---
Date of Consultation: 01/10/2023 Reason For Consultation: Abdominal pain. History Of Present Illness: The patient is a 67-year-old female, who came to the emergency room on S unday with epigastric pain radiating to the right, associated with 1 episode of nausea, vomiting. Sh e denies any bloating, belching, or heartburn. The pain is postprandial in nature. She denies any p ain in her neck or left arm. No history of hypertension or coronary artery disease. The patient was admitted initially for chest pain to rule out [place]. She had a stress test done yesterday, which was e ssentially negative. She continued to have postprandial pain. Her CAT scan showed a gallstone in th e neck of the gallbladder. Ultrasound did not show any evidence of gallbladder wall thickening or ch olelithiasis, but there was sludge in it and I was asked to evaluate. She denies any sore throat, ru nny nose, cough, headaches, or dizziness. No chest pain. No fever or chills. No diarrhea or consti pation. No blood in her stool. No dysuria, hematuria. Review of Systems: Otherwise unremarkable. Past Medical History: Significant for depression, hyperlipidemia. Past Surgical History: x3 and appendectomy and hysterectomy. Allergies: NO ALLERGIES. Social History: She does not smoke or drink. Family History: Significant for hypertension and diabetes. Physical Examination: Vital Signs: Stable. She is currently afebrile. General: She is awake, alert, oriented x3. Head and Neck: No evidence of icterus. Cranial nerves 2 through 12 are grossly within normal limits . No neck masses. No JVD. Throat clear. Neck is supple. Chest: Clear. Heart: S1, S2. Abdomen: Soft, nondistended. Positive bowel sounds. Positive right upper quadrant tenderness with minimal rebound. No rigidity or guarding. Extremities: Adequately perfused, nontender. Neuro: Nonfocal. Imaging Data: Ultrasound showed gallbladder sludge with no evidence of gallbladder wall thickening o r gallstones. CAT scan did show a gallstone, however, and stress tests have been negative. Laboratory Data: Significant for white count of 18.3 with a left shift. INR is 0.97, and chemistry shows normal LFTs, total bilirubin is slightly elevated at 1.5. Lipase is within normal limits. Assessment: Acute cholecystitis and cholelithiasis. Plan: The patient had breakfast this morning. Therefore, we will perform the surgery tomorrow. We will place the patient on IV antibiotics and we will proceed with laparoscopic cholecystectomy, possi ble open. The patient understands risks, benefits, and alternatives and agrees to procedure. TRISTIAN/CASI Voice ID: [id number] Report ID: [id number]
[2023-01-10] MEDS: PIPER TAZO 3.375 GM in NA CHLORIDE 0.9% 100 ML IV SCH ×2 (15:07→21:37)
[2023-01-10] MEDS: HYDROMORPHONE HCL 0.5 MG/0.5 ML INJ IV PRN ×2 (15:08→20:17)
[2023-01-10] MEDS: TIZANIDINE 4 MG TABLET PO SCH (20:17)
[2023-01-10] MEDS: PARoxetine HCL 10 MG TAB PO SCH (20:18)
[2023-01-10] MEDS: ATORVASTATIN 10 MG TAB PO SCH (20:18)
[2023-01-11] MEDS: HEPARIN 5000 UNIT/ML 1 ML VIAL SQ SCH ×3 (01:00→17:00)
[2023-01-11] MEDS: PIPER TAZO 3.375 GM in NA CHLORIDE 0.9% 100 ML IV SCH ×3 (04:12→20:14)
--- NOTE | 2023-01-11 07:05 | P.PN ---
Subjective Date of Service: 01/11/23 Chief Complaint: Chest pain Reports right upper quadrant pain, NPO for lab choley today, reports relief with IV analgesics. Review of Systems ROS perHPI Physical Examination - Vital Signs Temperature: 96.9 F Blood Pressure: 114/57 Pulse: 71 Respirations: 17 Pulse Ox (%): 92 - Physical Exam General: Alert, In no apparent distress, Oriented x3 HEENT: Atraumatic, Normocephalic Neck: Supple, 2+ carotid pulse no bruit Respiratory: Clear to auscultation bilaterally, Normal air movement Cardiovascular: No edema, Normal pulses Capillary refill: <2 Seconds Gastrointestinal: Normal bowel sounds, Tenderness (RUQ, epigastric) Musculoskeletal: No clubbing, No swelling Integumentary: No rashes, No breakdown Neurological: Normal speech, Normal strength at 5/5 x4 extr Assessment And Plan - Plan Assessment and plan Chest pain rule out SD Telemetry, trend troponins, lipid panel in the a.m., repeat EKG in the a.m. Aspirin, as needed antihypertensives, as needed analgesics, as needed antiemetics BNP 459 troponin normal at 5.7, CBC unremarkable EKG s normal sinus rhythm at the rate of 79, there is muscle tremor artifact, no ST elevation or depression, normal EKG. HEART Score: History: Moderately Suspicious (1), ECG: Normal (0), Age: > or = 65 years (2), Risk Factors: 1 or 2 risk factors (1), Troponin: < or = 1 x Normal Limit (0), back pain total Score = 4. Chest x-ray IMPRESSION: Mild COPD. lipase normal at 34 AST ALT normal , , 01/09 Nuc med cardiac stress test MPRESSION: No stress induced ischemia Abdominal pain Nausea vomiting Acute cholecystitis and cholelithiasis with leukocytosis Abdominal ultrasound IMPRESSION: No cholelithiasis or gallbladder wall thickening. A small volume of sludge is noted in the gallbladder. Biliary tree is within normal caliber 01/10 Surgery, GI consulted, Keep NPO overnight 01/11/23 s/p laparoscopic cholecystectomy w GERARDO drain, Dr Brennan 01/11 IV Zosyn, WBCs trending down Laboratory Data: Significant for white count of 18.3 with a left shift. INR is 0.97, and chemistry shows started on Zosyn normal LFTs, total bilirubin is slightly elevated at 1.5. Lipase is within normal limits. Acute kidney injury unknown baseline Trend kidney function acute kidney injury BUN 23 creatinine 1.23, unknown baseline Gentle IV fluids depression hyperlipidemia Resume appropriate home meds DVT prophylaxis n.p.o. after midnight Full code Discharge Plan: Home Plan to discharge in: 48 Hours - Code Status/Comfort Care Code Status: Full Code Physician Review: Patient Assessed, Agree with Above Assessment and Plan Critical Care: No Time Spent Managing PTS Care (In Minutes): 35
[2023-01-11] MEDS: CYANOCOBALAMIN 1,000 MCG TAB PO SCH (09:00)
[2023-01-11] MEDS: FAMOTIDINE 20 MG TAB PO SCH (09:00)
[2023-01-11] MEDS: ASPIRIN EC 81 MG TAB PO SCH (09:00)
[2023-01-11] MEDS: HYDROMORPHONE HCL 0.5 MG/0.5 ML INJ IV PRN (09:05)
[2023-01-11 09:40] LABS: Absolute Lymphocytes (CBC) 0.9 K/uL (0.7-4.9); Hematocrit 36.3 % (36.0-45.0); Lymphocytes % 6.6 % (15.3-44.8); MCV 87.9 fL (80-100); MPV 7.9 fL (7.6-11.3); Platelets 248 thou/uL (152-406); RBC Red Blood Cell Count 4.13 M/uL (3.86-4.86)
[2023-01-11 10:00] LABS: Magnesium 2.6 mg/dL (1.6-2.4); Potassium 5.2 mEq/L (3.5-5.1)
[2023-01-11] MEDS ORDERED: Ringers Lactate 1,000 ML IV ONE (10:16)
[2023-01-11] MEDS ORDERED: CEFOXITIN SODIUM 1 GM/VIAL ONE (10:23)
[2023-01-11] MEDS ORDERED: BUPIVACAINE 0.5% PF 10 ML VIAL ONE (10:36)
[2023-01-11] MEDS ORDERED: NEOSTIGMINE 1 MG/ML -10 ML VIAL ONE (10:37)
[2023-01-11] MEDS ORDERED: FENTANYL CITR 100 MCG/2 ML ONE ×2 (10:37→11:41)
[2023-01-11] MEDS ORDERED: ROCURONIUM 50 MG/5 ML VIAL IV ONE ×2 (10:37→11:42)
[2023-01-11] MEDS ORDERED: MIDAZOLAM HCL 2 MG/2 ML INJ ONE (10:37)
[2023-01-11] MEDS ORDERED: ONDANSETRON 4 MG/2 ML VIAL ONE (10:37)
[2023-01-11] MEDS ORDERED: propofoL 200 MG/20 ML VIAL IV ONE (10:37)
[2023-01-11] MEDS ORDERED: GLYCOPYRROLATE 0.2 MG/ML SYR ONE (10:37)
[2023-01-11] MEDS ORDERED: LIDOCAINE 2% MPF 5 ML VIAL ONE (10:37)
[2023-01-11] MEDS ORDERED: dexAMETHasone 10 MG/ML VIAL ONE (11:30)
[2023-01-11] MEDS ORDERED: KETOROLAC 30 MG/ML INJ ONE (12:10)
--- NOTE | 2023-01-11 12:24 | P.OP ---
Date of Service: 01/11/23 Preop diagnosis: Acute cholecystitis and cholelithiasis Postop diagnosis: Same Procedure performed: Laparoscopic cholecystectomy Surgeon: Gerry Brennan MD Beef Pusher: Funmi KEY Estimated blood loss: Minimal Specimen: Gallbladder Findings: Acute cholecystitis and cholelithiasis Anesthesia: General Complications: None Drains: Klever-Jose drain #10 flat Fluids and blood products: Nonapplicable Disposition: Recovery room Operative note: Patient brought to the OR and placed in the supine position. General anesthesia begun. Patient prepped and draped in the usual sterile fashion. Marcaine 0.5% infiltrated locally. 15 blade used to make a 1 cm supraumbilical midline incision. Subcutaneous tissue divided. Fascia identified and divided. #1 Vicryl stay suture placed. Peritoneal cavity entered with sharp and blunt dissection. 12 mm trocar placed into the peritoneal cavity under direct vision. Pneumoperitoneum established. Then 3 5 mm trocar placed under direct vision. 1 trocar placed in the epigastric region just to the right of midline. 2 trocars were placed in the right subcostal region under direct vision. Laparoscopy revealed omental covering of the gallbladder which was acutely inflamed. Careful blunt dissection was utilized to remove the omentum away from the gallbladder. The gallbladder was distended and appeared ischemic consistent with acute cholecystitis. Gallbladder was aspirated of white bile consistent with acute cholecystitis. Fundus retracted superiorly. Infundibulum identified and retracted inferolaterally. Cystic duct cystic artery identified with blunt dissection. Clips placed and both structures divided. Cautery used to remove the gallbladder from the liver bed. Bleeding from the liver bed was controlled with cautery. Gallbladder retrieved through the umbilicus via Endo Catch bag. Right upper quadrant irrigated. Effluent was clear but there was oozing noted from all the inflammatory tissue. Ade and Surgicel utilized in the standard fashion. As a precaution, Klever- Jose drain #10 flat was placed in the subhepatic space. And it was secured with 3-0 nylon. Then all trocars removed under direct vision. Stay sutures tied to each other to reapproximate the fascial defect. Subcutaneous wounds irrigated and bleeding controlled cautery. 3-0 chromic used to approximate subcutaneous tissue. Walls used to close skin. Sterile dressing applied. Patient awakened and taken to recovery room in good general condition. CC:
[2023-01-11] MEDS: D5 0.45 NS 1,000 ML IV SCH ×2 (13:00→20:13)
[2023-01-11] MEDS ORDERED: HYDROMORPHONE HCL 1 MG/ML INJ ONE (13:44)
[2023-01-11] MEDS: HYDROMORPHONE HCL 1 MG/ML INJ IV PRN ×2 (15:31→20:25)
[2023-01-11] MEDS: PARoxetine HCL 10 MG TAB PO SCH (20:14)
[2023-01-11] MEDS: TIZANIDINE 4 MG TABLET PO SCH (20:14)
[2023-01-11] MEDS: ATORVASTATIN 10 MG TAB PO SCH (20:14)
[2023-01-12] MEDS: HEPARIN 5000 UNIT/ML 1 ML VIAL SQ SCH ×2 (00:28→09:00)
[2023-01-12] MEDS: HYDROCODONE/APAP 7.5/325 MG TAB PO PRN ×2 (00:30→09:03)
[2023-01-12] MEDS: PIPER TAZO 3.375 GM in NA CHLORIDE 0.9% 100 ML IV SCH (03:07)
[2023-01-12 06:07] LABS: Absolute Lymphocytes (CBC) 0.8 K/uL (0.7-4.9); Lymphocytes % 7.3 % (15.3-44.8); MCV 88.1 fL (80-100); MPV 8.5 fL (7.6-11.3); Platelets 257 thou/uL (152-406); RBC Red Blood Cell Count 3.74 M/uL (3.86-4.86)
[2023-01-12 06:23] LABS: Magnesium 2.5 mg/dL (1.6-2.4); Potassium 4.4 mEq/L (3.5-5.1)
--- NOTE | 2023-01-12 08:07 | P.DS ---
Admission Date: 01/08/23 Discharge Date: 01/12/23 Disposition: ROUTINE DISCHARGE Discharge Condition: GOOD Reason for Admission: Chest pain Brief History of Present Illness: 67-year-old female female with a past medical history of depression, hyperlipidemia, presents to the emergency room with abdominal pain, chest pain. She reports symptoms started after eating reports associated nausea vomiting x1. She reports epigastric pain radiates to the right upper quadrant, she denies chest pain radiating to her neck or left arm, denies history of [place], hypertension. She reports history of stress test. No reported fever, cough, edema, dizziness, diarrhea, dysuria. Plan to admit for chest pain rule out [place], laboratory evaluation acute kidney injury BUN 23 creatinine 1.23, unknown baseline elevated blood glucose 168 elevated BNP 459 troponin normal at 5.7 lipase normal at 34 AST ALT normal 21, 24, CBC unremarkableEKG s normal sinus rhythm at the rate of 79, there is muscle tremor artifact, no ST elevation or depression, normal EKG. HEART Score: History: Moderately Suspicious (1), ECG: Normal (0), Age: > or = 65 years (2), Risk Factors: 1 or 2 risk factors (1), Troponin: < or = 1 x Normal Limit (0), back pain total Score = 4. Abdominal ultrasoundIMPRESSION: No cholelithiasis or gallbladder wall thickening. A small volume of sludge is noted in the gallbladder. Biliary tree is within normal caliber Chest x-ray IMPRESSION: Mild COPD. - Physical Exam General: Alert, In no apparent distress, Oriented x3 HEENT: Atraumatic, Normocephalic Neck: Supple, 2+ carotid pulse no bruit Respiratory: Clear to auscultation bilaterally, Normal air movement Cardiovascular: No edema, Normal pulses, Regular rate/rhythm Capillary refill: <2 Seconds Gastrointestinal: Normal bowel sounds, Tenderness (laparoscopic surgical incisions clean dry and intact, GERARDO drain to low intermittent suction) Musculoskeletal: No clubbing, No swelling Integumentary: No rashes, No breakdown Neurological: Normal speech, Normal strength at 5/5 x4 extr Hospital Course: Assessment and plan Abdominal pain Nausea vomiting Acute cholecystitis and cholelithiasis with leukocytosis Abdominal ultrasound IMPRESSION: No cholelithiasis or gallbladder wall thickening. A small volume of sludge is noted in the gallbladder. Biliary tree is within normal caliber 11/28 Surgery, GI consulted, Keep NPO overnight 01/11/23 s/p laparoscopic cholecystectomy w GERARDO drain, Dr Brennan 01/11 IV Zosyn, WBCs trending down Follow-up with Dr. Brennan for drain removal and postop surgical appointment Discharge medications Levaquin 1 p.o. daily for 7 days metronidazole 500 mg 1 p.o. 3 times daily for 7 days [place] 1 every 6 hours as needed pain Follow-up with Dr. Brennan. Postop 7 to 10 days Follow-up with primary care 7 to 10 days Return to the emergency room for worsening of symptoms Chest pain rule out [place] Telemetry, trend troponins, lipid panel in the a.m., repeat EKG in the a.m. Aspirin, as needed antihypertensives, as needed analgesics, as needed antiemetics BNP 459 troponin normal at 5.7, CBC unremarkable EKG s normal sinus rhythm at the rate of 79, there is muscle tremor artifact, no ST elevation or depression, normal EKG. HEART Score: History: Moderately Suspicious (1), ECG: Normal (0), Age: > or = 65 years (2), Risk Factors: 1 or 2 risk factors (1), Troponin: < or = 1 x Normal Limit (0), back pain total Score = 4. Chest x-ray IMPRESSION: Mild COPD. lipase normal at 34 AST ALT normal , 24, 01/09 Nuc med cardiac stress test MPRESSION: No stress induced ischemia Laboratory Data: Significant for white count of 18.3 with a left shift. INR is 0.97, and chemistry shows started on Zosyn normal LFTs, total bilirubin is slightly elevated at 1.5. Lipase is within normal limits. Acute kidney injury unknown baseline Trend kidney function acute kidney injury BUN 23 creatinine 1.23, unknown baseline Gentle IV fluids depression hyperlipidemia Resume appropriate home meds Vital Signs/Physical Exam: Temp Pulse Resp BP Pulse Ox 97.9 F 50 16 102/63 97 01/12/23 04:00 01/12/23 04:00 01/12/23 04:00 01/12/23 05:40 01/12/23 05:40 Laboratory Data at Discharge: WBC 11.30 thou/uL (4.3-10.9) H 01/12/23 05:45 Hgb 11.3 g/dL (12.0-15.0) L 01/12/23 05:45 Hct 33.0 % (36.0-45.0) L 01/12/23 05:45 Plt Count 257 thou/uL (152-406) 01/12/23 05:45 PT 10.7 SECONDS (9.5-12.5) 01/07/23 21:58 INR 0.97 01/07/23 21:58 Sodium 131 mEq/L (136-145) L 01/12/23 05:45 Potassium 4.4 mEq/L (3.5-5.1) D 01/12/23 05:45 BUN 26 mg/dL (7-18) H 01/12/23 05:45 Creatinine 1.17 mg/dL (0.55-1.02) H 01/12/23 05:45 Glucose 164 mg/dL (74-106) H 01/12/23 05:45 Phosphorus 2.5 mg/dL (2.5-4.9) 01/10/23 09:42 Magnesium 2.5 mg/dL (1.6-2.4) H 01/12/23 05:45 Total Bilirubin 1.5 mg/dL (0.2-1.0) H 01/10/23 09:42 AST 10 U/L (15-37) L 01/10/23 09:42 ALT 20 U/L (13-56) 01/10/23 09:42 Alkaline Phosphatase 51 U/L (45-117) 01/10/23 09:42 Triglycerides 149 mg/dL (<150) 01/09/23 06:27 Cholesterol 143 mg/dL (<200) 01/09/23 06:27 HDL Cholesterol 47 mg/dL (40-60) 01/09/23 06:27 Cholesterol/HDL Ratio 3.04 01/09/23 06:27 Lipase 10 U/L (13-75) L 01/10/23 09:42 Home Medications: Cholecalciferol (Vitamin D3) [Vitamin D3] 2 cap PO DAILY 08/21/20 Multivit-Min/FA/Lycopen/Lutein [Centrum Silver Tablet] 1 each PO DAILY 08/21/20 Furosemide [Lasix] 20 mg PO DAILY 01/08/23 Tramadol HCl [Ultram] 50 mg PO TID PRN 01/08/23 Atorvastatin Calcium [Lipitor*] 10 mg PO BEDTIME tab 01/11/23 Cyanocobalamin [Vitamin B-12*] 2,000 mcg PO DAILY tab 01/11/23 Famotidine [Pepcid*] 10 mg PO DAILY tab 01/11/23 PARoxetine HCL [Paxil*] 20 mg PO BEDTIME tab 01/11/23 Tizanidine [Zanaflex*] 4 mg PO BEDTIME tab 01/11/23 Hydrocodone 10/APAP 325 [[place] 10/325*] 1 tab PO Q6HR PRN #20 tab 01/12/23 levoFLOXacin [Levaquin] 500 mg PO DAILY #7 tab 01/12/23 metroNIDAZOLE [Metronidazole] 500 mg PO TID #21 tab 01/12/23 New Medications: levoFLOXacin [Levaquin] 500 mg PO DAILY #7 tab metroNIDAZOLE [Metronidazole] 500 mg PO TID #21 tab Hydrocodone 10/APAP 325 [[place] 10/325*] 1 tab PO Q6HR PRN #20 tab PRN Reason: Pain Scale 5-7 (Moderate) Physician Discharge Instructions: -OK to DC IV and DC home -Follow-up with Surgery in 1-2 weeks -Follow-up with PCP in 1-2 weeks -Please call Dr. Fernandez at [phone] if any questions regarding hospital stay -Please call nursing station at [phone] if any nursing or medication questions -Return to the emergency room if symptoms worsen Keep dressing clean and dry and cover with plastic when showering Record GERARDO output every 12 hours, strip tubing as needed, teach patient and family and bring record to office Incentive spirometry as directed Antibiotics and pain medicine per Dr. Fernandez No heavy lifting or strenuous exercise Follow-up my office 1 week, call for appointment Diet: AHA Activity: Fall precautions Followup: Gerry Brennan MD [ACTIVE - CAN ADMIT] - 1 Week ()
--- NOTE | 2023-01-12 08:11 | P.PN ---
Subjective Date of Service: 01/12/23 Chief Complaint: Chest pain Reports right upper quadrant pain, NPO for lab choley today, reports relief with IV analgesics. Physical Examination - Vital Signs Temperature: 97.9 F Blood Pressure: 102/63 Pulse: 50 Respirations: 16 Pulse Ox (%): 97 Assessment And Plan - Plan Assessment and plan Chest pain rule out [place] Telemetry, trend troponins, lipid panel in the a.m., repeat EKG in the a.m. Aspirin, as needed antihypertensives, as needed analgesics, as needed antiemetics BNP 459 troponin normal at 5.7, CBC unremarkable EKG s normal sinus rhythm at the rate of 79, there is muscle tremor artifact, no ST elevation or depression, normal EKG. HEART Score: History: Moderately Suspicious (1), ECG: Normal (0), Age: > or = 65 years (2), Risk Factors: 1 or 2 risk factors (1), Troponin: < or = 1 x Normal Limit (0), back pain total Score = 4. Chest x-ray IMPRESSION: Mild COPD. lipase normal at 34 AST ALT normal , 24, 01/09 Nuc med cardiac stress test MPRESSION: No stress induced ischemia Abdominal pain Nausea vomiting Acute cholecystitis and cholelithiasis with leukocytosis Abdominal ultrasound IMPRESSION: No cholelithiasis or gallbladder wall thickening. A small volume of sludge is noted in the gallbladder. Biliary tree is within normal caliber 01/10 Surgery, GI consulted, Keep NPO overnight 01/11/23 s/p laparoscopic cholecystectomy w GERARDO drain, Dr Brennan 01/11 IV Zosyn, WBCs trending down Laboratory Data: Significant for white count of 18.3 with a left shift. INR is 0.97, and chemistry shows started on Zosyn normal LFTs, total bilirubin is slightly elevated at 1.5. Lipase is within normal limits. Acute kidney injury unknown baseline Trend kidney function acute kidney injury BUN 23 creatinine 1.23, unknown baseline Gentle IV fluids depression hyperlipidemia Resume appropriate home meds DVT prophylaxis n.p.o. after midnight Full code Physician Review: Patient Assessed, Agree with Above Assessment and Plan
[2023-01-12] MEDS ORDERED: NA CHLORIDE 0.9% 1,000 ML IV SCH (09:00)
[2023-01-12] MEDS: D5 0.45 NS 1,000 ML IV SCH (09:00)
[2023-01-12] MEDS: FAMOTIDINE 20 MG TAB PO SCH (09:03)
[2023-01-12] MEDS: CYANOCOBALAMIN 1,000 MCG TAB PO SCH (09:03)
[2023-01-12] MEDS: ASPIRIN EC 81 MG TAB PO SCH (09:03)
[2023-01-12 09:19] LABS: Blood Morphology Comment NOT SEEN (NOT SEEN); Platelet Estimate ADEQ; White Blood Cell Scan OK (OK)
[2023-01-12 09:26] VITALS: O2SAT 97
--- NOTE | 2023-01-12 09:57 | PN ---
Date of Progress Note: 01/12/2023 Subjective: Patient is awake, alert. No complaint. Objective: Vital Signs: Stable. Afebrile. Abdomen: Soft, nondistended, nontender. GERARDO drainage has serosanguineous fluid, minimal. Laboratory Data: Reviewed. White count is 11.3, H and H are 11.3 and 33.0. Electrolytes reviewed. Assessment: Status post laparoscopic cholecystectomy for acute cholecystitis and cholelithiasis. Recommendation: Patient cleared from Surgery for discharge. The patient will be discharged home on Cipro, Flagyl, and pain medicine. Follow up with me in 1 week. We will take the GERARDO drain out in the office. Discharge instructions given in detail. /MODL Voice ID: [id number] Report ID: [id number]
[2023-01-12 13:07] VITALS: BP 145/65; TEMP 97.7
== END 2023-01-12 13:30 | disposition home or self-care (01) | DRG 418 ==
LOC: ER 21:15 → ERHOLD 01-08 00:09 → OBSVTOIN 01-08 00:09 → 4TH 01-08 00:24
PROVIDERS: ADMIT Internal Medicine Nephrology; ATTEND Hospitalist
PROC: 0FT44ZZ Resection of Gallbladder, Percutaneous Endoscopic Approach (ICD-10-PCS; principal; 2023-01-08)
DX: K80.00 Calculus of gallbladder with acute cholecystitis without obstruction (principal); N17.9 Acute kidney failure, unspecified; E78.00 Pure hypercholesterolemia, unspecified; F32.A Depression, unspecified; J44.9 Chronic obstructive pulmonary disease, unspecified; Z90.49 Acquired absence of other specified parts of digestive tract; Z79.899 Other long term (current) drug therapy; Z90.710 Acquired absence of both cervix and uterus
CPT/HCPCS: 36415; 71045; 71260; 74177; 76705; 78452; 80048; 80053; 80061; 80076; 83690; 83735; 83880; 84100; 84145; 84484; 85025; 85610; 88304; 93005; 93017; 94010; 96374; 96375; 99285; A9500; J0360; J0694; J1100; J1170; J1644; J2001; J2250; J2405; J2543; J2704; J2710; J2765; J2785; J3010; J7030; J7120; J7799; Q9967